=== PATIENT | male | born 1960 | race Caucasian/White ===

== ENCOUNTER → 2020-06-04 15:53 | Outpatient (BNVA) | payer SELFPAY | PROVIDERS: Visit Provider Urology | DX: Z76.89 Persons encountering health services in other specified circumstances (principal) ==

== ENCOUNTER → 2020-06-07 14:28 | Outpatient (BNVA) | payer OTHER, SELFPAY | PROVIDERS: PCP Internal Medicine; Referring Provider Internal Medicine; Visit Provider Nurse Practitioner Family | DX: Z76.89 Persons encountering health services in other specified circumstances (principal) ==

== ENCOUNTER 2020-06-14 10:13 | Outpatient (REF) | payer OTHER, SELFPAY ==
[2020-06-14 11:51] LABS: Hematocrit 43.4 % (42-52); Mean Corpuscular HGB Conc 32.3 g/dl (31.0-36.0); Mean Corpuscular Hemoglobin 29.7 pg (27.0-33.0); Mean Corpuscular Volume 92.1 fL (80-98); Mean Platelet Volume 11.3 fL (9.4-12.4); Platelet Count 224 X10*3/uL (160-400); Red Blood Count 4.71 X10*6/uL (4.60-5.80); Red Cell Distribution Width 12.9 % (11.0-16.0); White Blood Count 7.9 X10*3/uL (4.8-10.8)
[2020-06-14 12:28] LABS: Alanine Aminotransferase 18 U/L (0-40); Albumin Level 4.5 g/dL (3.5-5.0); Alkaline Phosphatase 116 U/L (39-117); Anion Gap 14 (12-20); Aspartate Amino Transferase 18 U/L (5-37); Bilirubin Total 0.6 mg/dL (0.0-1.0); Blood Urea Nitrogen 20 mg/dL (9-16); Calcium 9.5 mg/dL (8.4-10.2); Carbon Dioxide 29 mmol/L (22-29); Chloride 105 mmol/L (96-108); Estimated Glomerular Filt Rate > 60; Glucose Random 107 mg/dL (60-115); Sodium 143 mmol/L (135-145); Total Protein 7.5 g/dL (6.5-8.0)
[2020-06-14 12:45] LABS: PSA,Total (Free>4and<10) 7.02 ng/mL (0.00-4.00)
[2020-06-17 13:03] LABS: Free Prostate Spec Ag 0.9 ng/mL; Percent Free Prostate Spec Ag 13 % (calc) (>25); Prostate Specific Ag Total 6.8 ng/mL (< OR = 4.0)
== END 2020-06-14 10:14 | disposition home or self-care (01) ==
LOC: HO.LAB 10:13
PROVIDERS: Absent Provider Urology; PCP Internal Medicine; Visit Provider Nurse Practitioner Family
DX: N40.1 Benign prostatic hyperplasia with lower urinary tract symptoms (principal); R97.20 Elevated prostate specific antigen [PSA]; N13.8 Other obstructive and reflux uropathy; Z12.11 Encounter for screening for malignant neoplasm of colon; Z12.5 Encounter for screening for malignant neoplasm of prostate
CPT/HCPCS: 36415; 80053; 84153; 84154; 85027

== ENCOUNTER 2020-08-30 06:21 | Day surgery (SDC) | payer OTHER, SELFPAY ==
[2020-08-23 15:28] VITALS: BMI 26.6
--- NOTE | 2020-08-29 12:04 | HO.ANESPROP2 ---
Documented by User: Sarah Castillo 08/29/20 12:04 HPI - Anesthesia Eval Consult details Narrative: 59yo M for Colonoscopy PMFSH Active Problems Active Problems: All Active Problems (Updated 06/07/20 @ 15:16 by Iliana Workman [facility]) Elevated PSA (Acute) Past Medical History Medical History HTN (hypertension) Family History Family History Father Diabetes Kidney stones Mother High blood pressure Brother Throat cancer Surgical History Surgical History No significant past surgical history Social History Social History Are you a primary foster care social worker to a significant other at home: No Do you presently have visiting nurse or other home services: No Alcohol intake: current Alcohol intake frequency: holidays/special occasions only Smoking Status: Current every day smoker Tobacco Type: Cigarette Packs Per Day: 0.5 Cigarettes Per Day: 10.0 Years Smoked: 40+ Smoked in Last 30 Days: Yes Patient Interested in Nicotine Replacement: No Use of substances other than those prescribed or required for medical reasons: No Have you been hit, kicked, punched, or otherwise hurt by someone within the past year? If so, by whom?: No Advance Directives: No Advance Directives Information Provided: No Advance Directives on File: No Recently lost weight without trying: No Meds Allergies Allergy/AdvReac Type Severity Reaction Status Date / Time No Known Allergies Allergy Verified 08/30/20 06:32 Home Medications Medication Instructions Recorded Confirmed Last Taken Type aspirin 81 mg tablet,delayed 81 mg PO DAILY 06/07/20 08/23/20 08/30/20 History release lisinopril 20 mg tablet 20 mg PO DAILY 06/07/20 08/23/20 08/30/20 History Exam Exam Date and Time: August 29, 2020 1204 Height,Weight and Vital Signs: Height 5 ft 7 in Weight 77.111 kg Assessment and Plan Assessment Anesthesia Assessment: Chart Reviewed Documented by User: Becka Joe 08/30/20 07:28 [facility] Past Medical History Medical History HTN (hypertension) Family History Family History Father Diabetes Kidney stones Mother High blood pressure Brother Throat cancer Surgical History Surgical History No significant past surgical history Social History Social History Are you a primary foster care social worker to a significant other at home: No Do you presently have visiting nurse or other home services: No Alcohol intake: current Alcohol intake frequency: holidays/special occasions only Smoking Status: Current every day smoker Tobacco Type: Cigarette Packs Per Day: 0.5 Cigarettes Per Day: 10.0 Years Smoked: 40+ Smoked in Last 30 Days: Yes Patient Interested in Nicotine Replacement: No Use of substances other than those prescribed or required for medical reasons: No Have you been hit, kicked, punched, or otherwise hurt by someone within the past year? If so, by whom?: No Advance Directives: No Advance Directives Information Provided: No Advance Directives on File: No Recently lost weight without trying: No Meds Allergies Allergy/AdvReac Type Severity Reaction Status Date / Time No Known Allergies Allergy Verified 08/30/20 06:32 Home Medications Medication Instructions Recorded Confirmed Last Taken Type aspirin 81 mg tablet,delayed 81 mg PO DAILY 06/07/20 08/23/20 08/30/20 History release lisinopril 20 mg tablet 20 mg PO DAILY 06/07/20 08/23/20 08/30/20 History Exam Airway Mallampati Class: II TM Dist: >3cm Neck ROM: Full Loose/Missing/Broken Teeth: No Heart: RRR Lungs: CTA Assessment and Plan Assessment Anesthesia Assessment: Anesthesia Plan Discussed and Chart Reviewed Final Anesthetic Review NPO: Yes ASA Class: II Final Preanesthetic Review: Meds/Allgs Chart Reviewed, Consent Obtained/Reviewed and Anes Risks/Benef Reviewed Patient Risk: Low Procedure Risk: Low Anesthetic Plan Anesthetic Plan: MAC: and Spinal Disposition: Standard PACU
[2020-08-30 06:43] VITALS: BP 137/74; PULSE 72; RESP 18; TEMP 36.2; O2SAT 98
[2020-08-30] MEDS: Lactated Ringers 1,000 ML 100 ML IVCONT (06:50)
--- NOTE | 2020-08-30 07:17 | W.PM.OPN ---
Operative Note Operative Note Date of Service: 09/02/20 Narrative: Pre-op diagnosis: Colon cancer screening Post-op diagnosis: other (Colon polyps, diverticulosis) Procedure: COLONOSCOPY TILL CECUM WITH BIOPSY AND SNARE POLYPECTOMY Consent: Indications for the procedure and potential complications of bleeding, perforation, reaction to medications and missed diagnosis were discussed with the patient with the help of a utility worker woolen mill and informed consent was obtained. Instrument: Olympus PCF H 190 L variable stiffness pediatric colonoscope Monitoring: Vital signs and clinical assessment, intermittent blood pressure monitoring, continuous EKG monitoring, Pulse oximetry and Carbon Dioxide monitoring were done throughout the procedure. Colon withdrawl time was 22 minutes. Procedure: The patient was placed in the left lateral decubitis position and pre-procedure medications were administered. After a digital rectal examination of the ano-rectum, the video colonoscope was inserted into the rectum and advanced through the colon to the cecum. The colonoscope was slowly withdrawn in a retrograde panoramic fashion and the colon mucosa was carefully examined including a retroflexed view of the rectum. Findings and interventions are described below. Procedure Difficulty: Without difficulty Findings: Terminal Ileum: Not evaluated Cecum: Normal Ascending Colon: Normal Transverse Colon: Two 4-5 mm sessile diminutive appearing polyps removed with the cold biopsy. A 10 mm sessile polyp removed with a cold snare. Descending Colon: Normal Sigmoid Colon: Two 5-6 mm diminutive appearing polyps removed with the cold biopsy. Moderate diverticulosis Rectum: Normal Ano-rectum: Normal Colon preparation: Good after copious irrigation Impression and Post Procedure Diagnosis: Colonoscopy Findings: Five small to medium sized polyps removed Moderate diverticulosis seen in the []colon Plan: Await pathology results Patient has an appointment on 09/20/20 in the GI Clinic with Iliana Workman FNP-BC. Repeat Colonoscopy interval based on path results - in 3-5 years if polyps are adenomatous and 10 years if polyps are hyperplastic. Above findings were reviewed with the patient and colon polyps and diverticulosis handouts were given in the discharge area Surgeon: Jody Arriola MD Anesthesia: MAC (Jaja Perez CRNA) Recreation Adviser: Ricardo Zhu Estimated blood loss (mL): 0 Pathology: other (A. Transverse colon polyps x3. B. sigmoid polyps x2) Condition: stable Disposition: PACU
--- NOTE | 2020-08-30 07:18 | MHC.SHP ---
Pre-Procedural Eval Section A The patient is an INPATIENT: No The History & Physical has been completed within 30 days and I have reviewed it.: No Section B Chief Complaint: screening Details of Present Illness: History of colonoscopy in the past with normal results per patient. Patient denies any gastrointestinal symptoms in the past or at present. Denies any personal or family history of gastrointestinal disease, colon polyps, or cancer. Denies history of difficulty with sedation or anesthesia in the past. Negative for history of sleep apnea. Denies any history of cardiac, renal, pulmonary, or hepatic disease. No history of infective diseases like hepatitis A, B, HIV or tuberculosis. Patient is on low-dose aspirin daily. Relevant Family History (Specify if Yes): No Relevant Social History: Tobacco Use Present Medications: see Short Stay Collaborative assessment Medical History: Significant History (Hypertension) History of Previous Operations: Relevant previous surgery/procedure and date(s) (History of colonoscopy) Allergies: Allergies Allergy/AdvReac Type Severity Reaction Status Date / Time No Known Allergies Allergy Verified 08/30/20 06:32 Review of Systems Sugical H&P ROS: Negative: Constitution, Cardiovascular, Respiratory and Gastrointestinal Exam Surgical H&P Exam: Normal: Heart, Normal: Lungs, Normal: Extremities and Normal: Abdomen Plan Diagnosis/Plan: Unchanged I have reviewed the history and physical and performed a pertinent physical examination on my patient. No changes have occurred unless specified.
[2020-08-30 08:15] VITALS: BP 95/57; PULSE 66; RESP 16; TEMP 36.1; O2SAT 100
[2020-08-30 08:30] VITALS: BP 131/78; PULSE 72; RESP 18; TEMP 36.3; O2SAT 97
== END 2020-08-30 09:06 | disposition home or self-care (01) ==
PROVIDERS: PCP Internal Medicine; Visit Provider Internal Medicine Gastroenterology
PROC: 0DJD8ZZ Inspection of Lower Intestinal Tract, Via Natural or Artificial Opening Endoscopic (ICD-10-PCS; CPT 45378; principal; 2020-08-30 07:30)
DX: Z12.11 Encounter for screening for malignant neoplasm of colon (principal); D12.5 Benign neoplasm of sigmoid colon; K63.5 Polyp of colon; K57.30 Diverticulosis of large intestine without perforation or abscess without bleeding; I10 Essential (primary) hypertension; Z79.899 Other long term (current) drug therapy; Z79.82 Long term (current) use of aspirin; F17.210 Nicotine dependence, cigarettes, uncomplicated
CPT/HCPCS: 45385; 45380; 88305

== ENCOUNTER 2021-02-07 14:40 | Outpatient (REF) | payer OTHER, SELFPAY ==
--- NOTE | ~2021-02-07 | CT_ITS ---
EXAMINATION: CT CHEST SCREENING CLINICAL INFORMATION: Nicotine dependence. COMPARISON: Chest x-ray 01/23/2014 TECHNIQUE: Multidetector volumetric CT imaging of the chest is performed without contrast using low dose technique. Additional 2-D coronal and sagittal reformatted images and axial 3-D maximum intensity projection (MIP) images are generated on the CT workstation. This CT examination was performed using dose optimization techniques as appropriate, variously including the following: *Automated exposure control *Adjustment of mA and/or kV according to patient size (this includes techniques or standardized protocols for targeted exams where dose is matched to indication/reason for exam; i.e. extremities or head) *Use of iterative reconstruction technique DLP: 50 mGy-cm FINDINGS: LUNGS: The lungs are well expanded and clear of acute pneumonic process. No pulmonary nodules, mass or consolidation seen. There is no ground-glass density or atelectasis. MEDIASTINUM: The thyroid lobes are asymmetrical but normal. Th central trachea and the bronchi are widely patent. The heart size and the great vessels are normal caliber. No pericardial effusion seen. No abnormal sized mediastinal or hilar lymph nodes. The central trachea and the bronchi are widely patent. PLEURA: There is no pleural effusion. No pleural mass or thickening. AXILLA: No lymphadenopathy. UPPER ABDOMEN: The visualized liver, spleen, pancreas, and bilateral adrenal glands are unremarkable. No radiopaque gallstones are visualized. There are punctate 2 mm radiopaque calculi upper pole right kidney. OSSEOUS STRUCTURES: There is moderate right ventral spondylosis mid and lower dorsal spine. CT/CT lung screening IMPRESSION: No pulmonary nodule, mass or consolidation seen. ASSESSMENT: Lung-RADS category 1: Negative RECOMMENDATION: Low-dose annual CT chest.
== END 2021-02-07 14:41 | disposition home or self-care (01) ==
LOC: HO.CT 14:40
PROVIDERS: Visit Provider Physician Assistant Medical
DX: Z12.2 Encounter for screening for malignant neoplasm of respiratory organs (principal); F17.210 Nicotine dependence, cigarettes, uncomplicated
CPT/HCPCS: 71271

== ENCOUNTER 2021-06-06 09:40 | Outpatient (REF) | payer OTHER, SELFPAY ==
[2021-06-06 10:39] LABS: Prostate Specific Antigen 6.83 ng/mL (<0.05-4.0)
== END 2021-06-06 09:41 | disposition home or self-care (01) ==
LOC: HO.LAB 09:40
PROVIDERS: Visit Provider Urology
DX: R97.20 Elevated prostate specific antigen [PSA] (principal); Z12.5 Encounter for screening for malignant neoplasm of prostate
CPT/HCPCS: 36415; 84153

== ENCOUNTER → 2021-06-12 08:03 | Outpatient (BNVA) | payer OTHER, SELFPAY | PROVIDERS: Visit Provider Urology | DX: R97.20 Elevated prostate specific antigen [PSA] (principal); F17.210 Nicotine dependence, cigarettes, uncomplicated | CPT/HCPCS: 99212 ==

== ENCOUNTER 2021-11-14 07:42 | Outpatient (REF) | payer OTHER, SELFPAY ==
[2021-11-14 09:54] LABS: PSA,Total (Free>4and<10) 7.16 ng/mL (0.00-4.00)
[2021-11-17 11:22] LABS: Free Prostate Spec Ag 0.8 ng/mL; Percent Free Prostate Spec Ag 11 % (calc) (>25); Prostate Specific Ag Total 7.5 ng/mL (< OR = 4.0)
== END 2021-11-14 07:43 | disposition home or self-care (01) ==
LOC: HO.LAB 07:42
PROVIDERS: Visit Provider Urology
DX: Z12.5 Encounter for screening for malignant neoplasm of prostate (principal); N13.8 Other obstructive and reflux uropathy; N40.1 Benign prostatic hyperplasia with lower urinary tract symptoms; R97.20 Elevated prostate specific antigen [PSA]
CPT/HCPCS: 36415; 84153; 84154

== ENCOUNTER 2021-12-23 07:19 | Outpatient (REF) | payer OTHER, SELFPAY ==
[2021-12-23 07:54] VITALS: BMI 25.0
[2021-12-23 07:55] VITALS: BP 134/65; PULSE 74; RESP 16; TEMP 36.7; O2SAT 100
--- NOTE | 2021-12-23 08:35 | W.PM.OPN ---
Operative Note Operative Note Date of Service: 12/23/21 Narrative: Preoperative diagnosis: Elevated PSA Postoperative diagnosis: Elevated PSA Procedure: 1. transrectal ultrasound measurement of prostate 2. transrectal ultrasound-guided pudendal nerve block 3. transrectal ultrasound-guided prostate biopsy 12 core Surgeon: Dr. Pepe Olguin Anesthetic: Local Indications for procedure: Elevated PSA 7.2 Procedure: After informed consent was verified, the patient was brought into the procedure area and lay left-hand side down on the table. Patient identity confirmed. Perioperative antibiotics confirmed. Iodine 10cc with Gel was placed per rectum Ultrasound probe was placed per rectum The prostate was measured in 3 dimensions Total volume equals 30 gm There were no cystic structures and no calcifications noted and the prostate was homogeneous in nature A ultrasound-guided pudendal nerve block was performed using 10 cc of 1% lidocaine. 8 cc was placed at the base and 2 cc of the apex. A 12 core biopsy was performed with 6 cores each side. Two cores were taken at the apex, mid and base. Cores were spaced between lateral and medial. He tolerated the procedure well. Was able to ambulate to bathroom after 5 minutes. Printed instructions regarding antibiotic use and common side effects such as low-grade temperature and bleeding were given Pathology: 12 core prostate biopsy.
[2021-12-23 08:38] VITALS: BP 137/75; PULSE 70; RESP 16; O2SAT 97
== END 2021-12-23 07:20 | disposition home or self-care (01) ==
LOC: HO.MS 07:19
PROVIDERS: PCP Internal Medicine; Visit Provider Urology
PROC: (CPT 55700; principal; 2021-12-23 08:00)
DX: R97.20 Elevated prostate specific antigen [PSA] (principal)
CPT/HCPCS: 55700; 76942; 88305

== ENCOUNTER 2023-05-18 15:36 | Emergency (ER) | payer OTHER, SELFPAY ==
[2023-05-18 15:38] VITALS: BP 176/86; PULSE 77; RESP 18; TEMP 37.3; O2SAT 98; BMI 25.7
--- NOTE | 2023-05-18 15:40 | ED_ITS ---
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 He states they told him his BP was 170s / 100s and he had to go to the ED to get his heart checked out. I asked if he was having chest pain and he states no. I am not sure why he was referred to the ED. He is compliant with his lisinopril 20mg MD complaint: HTN Onset (ago): unknown Radiation: non-radiation Severity: mild Relieving factors: none Exacerbating factors: none Associated symptoms: other (felt malaise yesterday and today not himself like pressure was high) Treatments prior to arrival: none Related Data Home Medications Medication Instructions Recorded Confirmed aspirin 81 mg tablet,delayed 81 mg PO DAILY 06/07/20 08/23/20 release (Adult Low Dose Aspirin) lisinopril 20 mg tablet 20 mg PO DAILY 06/07/20 08/23/20 Previous Rx's Medication Instructions Recorded ciprofloxacin HCl 500 mg tablet 500 mg PO BID 3 days #6 tabs 11/18/21 finasteride 5 mg tablet 5 mg PO DAILY 90 days #90 tabs 11/18/21 lisinopril 30 mg tablet 30 mg PO DAILY #30 tabs 05/18/23 Allergies Allergy/AdvReac Type Severity Reaction Status Date / Time No Known Allergies Allergy Verified 12/29/21 15:17 Review of Systems 2 Review of Systems: Constitutional : No Fever, No Chills, No Fatigue, pos malaise ENT/Mouth : No sore throat, No Rhinorrhea Eyes: No Eye Pain, No Swelling, No Redness Cardiovascular : No Chest Pain, No SOB, No Dyspnea on Exertion Respiratory : No Cough, No Sputum Gastrointestinal : No Nausea, No Vomiting, No Diarrhea, No abdominal Pain Genitourinary : No Dysuria, No Urinary Frequency, No Hematuria, Musculoskeletal : No joint pain, No Myalgias, No Joint Swelling Skin : No Skin Lesions, No rash Neuro : No Weakness, No Numbness, No Dizziness, no Headache All other systems reviewed and are negative [facility] Past Medical History Source: old records reviewed Medical History Tubular adenoma of colon (~2020) Personal history of nicotine dependence HTN (hypertension) Surgical History History of colonoscopy (~2020) Family History Family History Father Diabetes Kidney stones Mother High blood pressure Brother Throat cancer Social History Social History Are you a primary healthcare social worker to a significant other at home: No Do you presently have visiting nurse or other home services: No Alcohol intake: current Alcohol intake frequency: holidays/special occasions only Cigarette Packs Per Day: 0.5 Cigarettes Per Day: 10.0 Years Smoked: 40+ Advance Directives: No Advance Directives Information Provided: No Physical Exam ED Vital Signs: Vital Signs - 24 hr 05/18/23 15:38 Temperature 99.1 F Pulse Rate 77 Respiratory Rate 18 Blood Pressure 176/86 H Pulse Oximetry 98 Oxygen Delivery Method Room Air BMI result Body Mass Index 25.7 Appearance: Alert. Oriented X3. No acute distress. Eyes: Pupils equal, round and reactive to light. ENT: Pharynx normal. Neck: Normal inspection. Neck supple. CVS: Normal heart rate and rhythm. Pulses normal. Respiratory: No respiratory distress. Breath sounds normal. Abdomen: Soft and nontender. Skin: Skin warm and dry. Normal skin color. Normal skin turgor. Extremities: No lower extremity edema. No calf ttp Neuro: Oriented X 3. No motor deficit. No sensory deficit. Course Course Course Narrative: RME- 62 year old male presents for evaluation of chest pain, weakess, and abnormal EKG from urgent care. Plan for labs, EKG Medical Decision Making Medical Decision Making MDM Narrative: 62 yo male with HTN here with feeling like his BP was high but no headaches, chest pain or end organ dysfunction signs - had labs, EKG negative workup. BP does remain high will increase lisinopril to 30mg daily with parameters and follow up with PCP. 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 Differential Diagnosis Differential Diagnoses: The differential diagnosis associated with the presentation includes uncontrolled HTN Admission/Observation Consideration of admission/observation: Escalation of care including admission/observation considered negative workup stable for DC Lab Data MDM Lab Attestation statement: I reviewed the patient's lab results. 05/18/23 17:57 05/18/23 17:57 Labs: Lab Results 05/18/23 05/18/23 Range/Units 17:57 18:00 WBC 10.2 (4.8-10.8) X10*3/uL RBC 4.96 (4.60-5.80) X10*6/uL Hgb 15.5 (14.0-18.0) g/dl Hct 45.3 (42.0-52.0) % MCV 91.3 (80.0-98.0) fL MCH 31.3 (27.0-33.0) pg MCHC 34.2 (31.0-36.0) g/dl RDW 13.1 (11.0-16.0) % Plt Count 216 (160-400) X10*3/uL MPV 11.1 (9.4-12.4) fL Immature Gran % (Auto) 0.3 (0.0-0.4) % Neut % (Auto) 73.1 H (45-73) % Lymph % (Auto) 19.8 L (20-40) % [place] % (Auto) 5.5 (2-11) % Eos % (Auto) 0.9 (0-4) % Baso % (Auto) 0.4 (0-2) % Lymph # (Auto) 2.0 (1.2-4.9) X10*3/uL [place] # (Auto) 0.6 (0.1-1.2) X10*3/uL Eos # (Auto) 0.1 (0.0-0.4) X10*3/uL Baso # (Auto) 0.0 (0.0-0.2) X10*3/uL Abs Immat Gran (auto) 0.03 (0.00-0.03) X10*3/uL Absolute Neuts (auto) 7.4 (2.0-8.3) x10*3/uL Absolute Nucleated RBC 0.000 (0.0-0.012) X10*3/uL Nucleated RBC % (auto) 0.0 (0.0-0.2) /100WBC PT 11.1 (11.1-13.3) SEC INR 0.9 (0.9-1.1) APTT 27.2 (26.0-36.4) SEC Sodium 140 (135-145) mmol/L Potassium 4.1 (3.3-5.1) mmol/L Chloride 105 (96-108) mmol/L Carbon Dioxide 27 (22-29) mmol/L Anion Gap 12 (12-20) BUN 16 (9-16) mg/dL Creatinine 0.81 (0.5-1.4) mg/dL Estim Creat Clear Calc 87.2 Estimated GFR > 60 Random Glucose 99 (60-115) mg/dL Calcium 9.6 (8.4-10.2) mg/dL Total Bilirubin 0.2 (0.0-1.0) mg/dL AST 16 (5-37) U/L ALT 13 (0-40) U/L Alkaline Phosphatase 119 H (39-117) U/L Troponin I High Sens < 2.7 (<3.5-35.0) ng/L Total Protein 7.7 (6.5-8.0) g/dL Albumin 4.3 (3.5-5.0) g/dL Lipase 21 (8-78) U/L Urine Color Yellow Urine Appearance Clear Urine pH 5.5 (5.0-9.0) Ur Specific [place] 1.015 (1.005-1.025) Urine Protein Negative (Neg-Trace) mg/dL Urine Glucose (UA) Negative (Negative) mg/dL Urine Ketones Negative (Negative) mg/dL Urine Blood Negative (Negative) Urine Nitrite Negative (Negative) Ur Leukocyte Esterase Trace H (Negative) Urine RBC 0-2 (0-2) /HPF Urine WBC 0-5 (0-5) /HPF Ur Squamous Epith Cells 0-2 (0-2) /HPF Urine Bacteria None Seen (None Seen) Hyaline Casts 0-2 (0-2) /LPF Influenza Type A (PCR) NEGATIVE (Negative) Influenza Type B (PCR) NEGATIVE (Negative) RSV RNA Qual (PCR) NEGATIVE (Negative) SARS-CoV-2 RNA (RT-PCR) NEGATIVE (Negative) Independent Interpretation I performed an independent interpretation of an: EKG Interpretation: Rate: 72 Rhythm: NSR [place]: normal , LVH Normal P waves. Normal RESHMA. Normal QRS complex. ST T wave : normal no SADE qTC: normal prior studies: no acute ischemia The study has been interpreted contemporaneously by me. . External Record Review External record reviewed: Inpatient record Prescription Management I considered prescription management with: Other Chronic Conditions Patient?s care impacted by: Hypertension Discharge Plan Discharge Clinical Impression: Chronic hypertension Patient Disposition: Home, Self-Care Instructions: Chronic Hypertension (ED) Additional Instructions: start taking lisinopril 30mg. return for chest pain, dizziness, numbness, hold lisinopril 30mg if blood pressure is below 110. you need to follow up with your doctor in 1 week Empiece a rachel lisinopril 30 mg. regrese si tiene dolor en el pecho, mareos, entumecimiento, mantenga lisinopril 30 mg si la presi?n arterial es inferior a 110. Debe realizar un seguimiento con berry m?dico en 1 semana. Prescriptions: New lisinopril 30 mg tablet 30 mg PO DAILY Qty: 30 0RF No Action lisinopril 20 mg tablet 20 mg PO DAILY aspirin [Adult Low Dose Aspirin] 81 mg tablet,delayed release (DR/EC) 81 mg PO DAILY ciprofloxacin HCl 500 mg tablet 500 mg PO BID 3 Days Qty: 6 0RF Rx Instructions: Take antibiotics day before, day of, and day after procedure finasteride 5 mg tablet 5 mg PO DAILY 90 Days Qty: 90 1RF Stand Alone Forms: Work/School Release Print Language: Luxembourgish
--- NOTE | 2023-05-18 15:41 | ECG_ITS ---
Test Reason : CP Blood Pressure : / mmHG Vent. Rate : 072 BPM Atrial Rate : 072 BPM P-R Int : 142 ms QRS Dur : 088 ms QT Int : 400 ms P-R-T Axes : 046 030 036 degrees QTc Int : 438 ms Sinus rhythm with baseline artifact Minimal voltage criteria for LVH, may be normal variant ( Sokolow-Mckeon ) Borderline ECG When compared with ECG of 23-JAN-2014 19:07, No significant changes seen Referred By: Vince Leavitt Electronically Signed By:ROSALIO SOLOMON MD
[2023-05-18 18:09] LABS: MANUAL DIFF FLAG NO
[2023-05-18 18:14] LABS: Basophils Percent Auto 0.4 % (0-2); Eosinophils Absolute Auto 0.1 X10*3/uL (0.0-0.4); Eosinophils Percent Auto 0.9 % (0-4); Hematocrit 45.3 % (42.0-52.0); Hemoglobin 15.5 g/dl (14.0-18.0); Imm Gran Abs Auto 0.03 X10*3/uL (0.00-0.03); Imm Gran Pct Auto 0.3 % (0.0-0.4); Lymphocytes Percent Auto 19.8 % (20-40); Mean Corpuscular HGB Conc 34.2 g/dl (31.0-36.0); Mean Corpuscular Hemoglobin 31.3 pg (27.0-33.0); Mean Corpuscular Volume 91.3 fL (80.0-98.0); Mean Platelet Volume 11.1 fL (9.4-12.4); Monocytes Absolute Auto 0.6 X10*3/uL (0.1-1.2); Monocytes Percent Auto 5.5 % (2-11); Neutrophils Absolute Auto 7.4 x10*3/uL (2.0-8.3); Neutrophils Percent Auto 73.1 % (45-73); Platelet Count 216 X10*3/uL (160-400); Red Blood Count 4.96 X10*6/uL (4.60-5.80); Red Cell Distribution Width 13.1 % (11.0-16.0); White Blood Count 10.2 X10*3/uL (4.8-10.8)
[2023-05-18 18:16] LABS: Appearance Urine Clear; Color Urine Yellow; Glucose Urine UA Negative (Negative); Leukocyte Esterase Urine Trace (Negative); Nitrite Urine Negative (Negative); PH 5.5 (5.0-9.0); Specific Gravity - Urine 1.015 (1.005-1.025); UMIC TRIGGER UACC YES; Urine Blood Negative (Negative); Urine Ketones Negative (Negative); Urine Protein Negative (Neg-Trace)
[2023-05-18 18:18] LABS: Bacteria Urine None Seen (None Seen); Hyaline Casts Urine 0-2 /LPF (0-2); RBC Urine 0-2 /HPF (0-2); Squamous Epithelial Cell Urine 0-2 /HPF (0-2); WBC Urine 0-5 /HPF (0-5)
[2023-05-18 18:19] LABS: INTERNATIONAL NORM RATIO 0.9 (0.9-1.1); Prothrombin Time 11.1 SEC (11.1-13.3)
[2023-05-18 18:22] LABS: Partial Thromboplastin Time 27.2 SEC (26.0-36.4)
[2023-05-18 18:28] LABS: Alanine Aminotransferase 13 U/L (0-40); Albumin Level 4.3 g/dL (3.5-5.0); Alkaline Phosphatase 119 U/L (39-117); Anion Gap 12 (12-20); Aspartate Amino Transferase 16 U/L (5-37); Bilirubin Total 0.2 mg/dL (0.0-1.0); Blood Urea Nitrogen 16 mg/dL (9-16); Calcium 9.6 mg/dL (8.4-10.2); Carbon Dioxide 27 mmol/L (22-29); Chloride 105 mmol/L (96-108); Creatinine Clr Calc Pharmacy 87.2; Estimated Glomerular Filt Rate > 60; Glucose Random 99 mg/dL (60-115); Lipase 21 U/L (8-78); Potassium 4.1 mmol/L (3.3-5.1); Sodium 140 mmol/L (135-145); Total Protein 7.7 g/dL (6.5-8.0)
[2023-05-18 18:41] LABS: Troponin-I High Sensitivity < 2.7 ng/L (<3.5-35.0)
[2023-05-18 18:51] LABS: Influenza A PCR NEGATIVE (Negative); Influenza B PCR NEGATIVE (Negative); Resp Syncy Virus RNA Qual PCR NEGATIVE (Negative); SARS COV2 PCR INHOUSE NEGATIVE (Negative)
--- NOTE | 2023-05-18 19:15 | MHC.EDTECH ---
EKG done at this time and signed by provider
[2023-05-18 23:51] VITALS: BP 148/92; PULSE 70; RESP 18; TEMP 36.7; O2SAT 98
== END 2023-05-19 00:09 | disposition home or self-care (01) ==
PROVIDERS: Physician Assistant; Emergency Provider Emergency Medicine
DX: R07.89 Other chest pain (principal); R00.2 Palpitations; I10 Essential (primary) hypertension; Z20.822 Contact with and (suspected) exposure to COVID-19; Z20.828 Contact with and (suspected) exposure to other viral communicable diseases; Z79.899 Other long term (current) drug therapy
CPT/HCPCS: 0241U; 36415; 80053; 81001; 83690; 84484; 85025; 85610; 85730; 93005; 99284

== ENCOUNTER → 2023-05-18 15:41 | Outpatient (BNV) | payer OTHER, SELFPAY | PROVIDERS: Emergency Provider Emergency Medicine; Visit Provider Internal Medicine Cardiovascular Disease | DX: R07.9 Chest pain, unspecified (principal) | CPT/HCPCS: 93010 ==

== ENCOUNTER 2023-07-08 11:13 | Outpatient (AMB) | payer OTHER, SELFPAY ==
--- NOTE | 2023-07-08 11:26 | A.OFFVIS_ITS ---
Intake Intake Visit Reasons: 6 Month PSA(set) Intake Note: Patient presents today for a follow-up/ PVR Meds- Finasteride Allergies to Antibiotic- No Known Allergies Blood Thinner- Aspirin Post Void Residual: Patient stated he needs refills for Finasteride Child Care Development Specialist Required: Yes Allergies No Known Allergies Allergy (Verified 07/08/23 11:32) Medication List - Last Reconciled 07/08/23 by Pepe Olguin MD aspirin (Adult Low Dose Aspirin) 81 mg PO DAILY finasteride 5 mg PO DAILY 90 days finasteride 5 mg PO DAILY 90 days lisinopril 30 mg PO DAILY HPI HPI Comments History of Present Illness Details Seng is a pleasant male. He is a patient of Dr. Fontaine. He is seen for the following urologic issues - elevated PSA - lower urinary tract symptoms Japanese translation provided by qualified medical claims representative Six-month review Prior prostate biopsy shows chronic inflammation Did not take finasteride Lab work not complete Six-month follow-up lab work Start finasteride Elevated PSA He presents for - further evaluation of elevated PSA. Current management is - finasteride Laboratory investigations include - a total PSA evaluation 04/19 8.0 - 06/20 7.0, 06/21 6.8 13%, 11/19 7.2 11% Imaging investigations include - a transrectal ultrasound no - a prostate MRI no Individualized Prostate Cancer Risk Calculator - 5-10% high risk - repeat PSA A TRUS biopsy - 12/19 chronic inflamed prostate Symptoms include - nocturia x2 Overall symptoms are mild Therapeutic plan will be - surveillance 6 month PSA [facility] Medical History Tubular adenoma of colon (~2020) Personal history of nicotine dependence HTN (hypertension) Surgical History History of colonoscopy (~2020) Family History Father Diabetes Kidney stones Mother High blood pressure Brother Throat cancer Social History Are you a primary family member caretaker to a significant other at home: No Do you presently have visiting nurse or other home services: No Alcohol intake: current Alcohol intake frequency: holidays/special occasions only Cigarette Packs Per Day: 0.5 Cigarettes Per Day: 10.0 Years Smoked: 40+ Review of Systems Const Denies chills and Denies fever(s) Card Reports no additional complaints and Denies syncope Resp Denies cough GI Denies abdominal pain and Denies heartburn Reports as per HPI and Denies change in libido Neuro Denies syncope Psych Denies change in libido Endo Denies change in libido Physical Exam Const General: cooperative, healthy appearing, comfortable and no acute distress Orientation/consciousness: patient oriented x3 HEENT Face and sinus: Yes normal facial exam Mouth: moist mucous membranes Neck Neck: Yes normal visual inspection, Yes full ROM and Yes trachea midline Chest Chest palpation & inspection: normal inspection of the chest Resp Effort & Inspection: normal respiratory effort, able to speak in complete sentences and no respiratory distress GI Inspection: Yes normal to inspection Rectal Exam - Male: Yes normal sphincter tone and Yes prostate normal Male General Exam: Yes normal external exam Penis: normal penis and circumcised Meatus: meatus normal Scrotum: scrotum normal Testes: Testes normal Back/Spine/Pelvis Cervical Spine: normal cervical lordosis Thoracic/Lumbar Spine: thoracic and lumbar spine normal to inspection Skin General skin exam: no rashes or lesions noted Neuro General: patient oriented x3, gait normal, tone normal and moves all extremities Extrem General: Yes normal to inspection and Yes capillary refill normal Office Procedures Post Void Residual Post Residual Void Post Void Residual (PVR): 35 [id number] Void Residual by ultrasound Assessment & Plan Assessment & Plan (1) BPH w urinary obs/LUTS: Code(s): N40.1 - Benign prostatic hyperplasia with lower urinary tract symptoms; N13.8 - Other obstructive and reflux uropathy (2) Elevated PSA: Code(s): R97.20 - Elevated prostate specific antigen [PSA] Plan Finasteride daily Six-month follow-up PSA tele Orders: Orders AMB Post Void Residual by ultrasound Today R33.9 - Retention of urine, unspecified PSA,Total (Free>4and<10) 6 Months N13.8 - Other obstructive and reflux uropathy, N40.1 - Benign prostatic hyperplasia with lower urinary tract symptoms Medications: New finasteride 5 mg PO DAILY 90 tabs 1RF 90 days N13.8 - Other obstructive and reflux uropathy, N40.1 - Benign prostatic hyperplasia with lower urinary tract symptoms, R33.9 - Retention of urine, unspecified Patient Instructions: Imaging studies, laboratory and physical exam results were discussed and reviewed in detail. No major barriers to patient understanding were identified. An opportunity to ask questions regarding the treatment plan was provided. All questions were answered. The patient expressed understanding and agreement with the above treatment plan. The patient is aware they should contact our office by phone for worsening of their current condition or the appearance of new urologic symptoms. Compliance is encouraged with any medications and followup testing that is ordered. It is a privilege to participate in the urologic care of your patient. If you have any questions or concerns regarding treatment for the above conditions, or other urologic issues, please do not hesitate to contact me. The office t elephone contact is [phone]. This note is constructed using voice recognition software. While every effort has been made to ensure accuracy plastics plater errors may have been included. Yours sincerely, Dr Pepe Olguin MD, [facility] - Urology Providers of Expert, Compassionate Care for the Genitourinary System Coding Level of Care Code Est Pt Level 4 (89898) Diagnoses BPH w urinary obs/LUTS N40.1; N13.8 Elevated PSA R97.20 CPT Codes Post Residual Void - PVR CPT Code: 31305-Cojv Void Residual by ultrasound ([id number])
== END 2023-07-08 11:42 | disposition home or self-care (01) ==
PROVIDERS: PCP Internal Medicine; Visit Provider Urology
DX: N40.1 Benign prostatic hyperplasia with lower urinary tract symptoms (principal); N13.8 Other obstructive and reflux uropathy; R97.20 Elevated prostate specific antigen [PSA]
CPT/HCPCS: 99214

== ENCOUNTER → 2023-07-08 11:13 | Outpatient (BNVA) | payer OTHER, SELFPAY | PROVIDERS: PCP Internal Medicine; Visit Provider Urology | DX: N40.1 Benign prostatic hyperplasia with lower urinary tract symptoms (principal); N13.8 Other obstructive and reflux uropathy; R97.20 Elevated prostate specific antigen [PSA] | CPT/HCPCS: 51798; 99212 ==

== ENCOUNTER 2024-01-06 08:48 | Outpatient (REF) | payer OTHER, SELFPAY ==
[2024-01-06 10:35] LABS: PSA,Total (Free>4and<10) 4.49 ng/mL (0.00-4.00)
[2024-01-10 10:59] LABS: Free Prostate Spec Ag 0.4 ng/mL; Percent Free Prostate Spec Ag 10 % (calc) (>25); Prostate Specific Ag Total 4.2 ng/mL (< OR = 4.0)
== END 2024-01-06 08:49 | disposition home or self-care (01) ==
LOC: HO.LAB 08:48
PROVIDERS: Visit Provider Urology
DX: N40.1 Benign prostatic hyperplasia with lower urinary tract symptoms (principal); N13.8 Other obstructive and reflux uropathy
CPT/HCPCS: 36415; 84153; 84154

== ENCOUNTER 2024-01-07 13:01 | Outpatient (AMB) | payer OTHER, SELFPAY ==
--- NOTE | 2024-01-07 13:12 | A.OFFVIS_ITS ---
Intake Visit Reasons: 6m/PSA Intake Note: Patient presents today for a follow up on : Elevated PSA PSA: 4.49 Meds- Finasteride Allergies to Antibiotic- No Known Allergies Blood Thinner- Aspirin Logistics Supply Officer Required: Yes Logistics Supply Officer Name: Oliverio [id number] Allergies No Known Allergies Allergy (Verified 01/07/24 22:32) Medication List - Last Reconciled 01/07/24 by ROMAN Ross aspirin (Adult Low Dose Aspirin) 81 mg PO DAILY finasteride 5 mg PO DAILY 90 days lisinopril 30 mg PO DAILY HPI Comments Details: Seng is a pleasant 63-year-old Wolof-speaking male patient of Dr. Fontaine. He has a past medical history of hypertension, nicotine dependence, and elevated PSA. Presents to the office today for follow-up of his elevated PSA. In discussion with the patient today he reports to be doing and feeling well. He reports no bothersome urinary issues or concerns. Recent PSA results reviewed with the patient today. Discussed decrease in PSA. He has a history of a prior prostate biopsy with Dr. Olguin in 12/19 that noted chronic inflammation. He reports compliance with finasteride as prescribed. In office urinalysis results reviewed with the patient today. He denies urinary urgency, urinary frequency, incontinence, nocturia, hematuria, dysuria, foul smelling urine, changes to urinary stream, flank pain, fever, and or chills. He is happy with his current voiding parameters. PSAs are as follows: 06/20 7.0 % free PSA 13%, 11/19 7.2 % free PSA 11%, 01/21 4.5 % free PSA remains pending. Discussed at length potential causes of elevated PSA. Discussed further treatment options to include MRI of the prostate verses surveillance monitoring. Risks and benefits of these interventions were discussed. He otherwise offers no other issues or concerns at this time. [facility] Medical History Tubular adenoma of colon (~2020) Personal history of nicotine dependence HTN (hypertension) Surgical History History of colonoscopy (~2020) Family History Father Diabetes Kidney stones Mother High blood pressure Brother Throat cancer Social History Are you a primary disabilities caregiver to a significant other at home: No Do you presently have visiting nurse or other home services: No Alcohol intake: current Alcohol intake frequency: holidays/special occasions only Cigarette Packs Per Day: 0.5 Cigarettes Per Day: 10.0 Years Smoked: 40+ Review of Systems Const All systems reviewed & are unremarkable except as noted in HPI and below Physical Exam Const General: cooperative, healthy appearing, comfortable, no acute distress, well developed, alert and awake Orientation/consciousness: patient oriented x3 Limitations: no limitations HEENT Head: Yes normal to inspection, Yes normocephalic and Yes atraumatic Ears: hearing grossly normal bilaterally Eyes General: appearance normal, both eyes and all related structures Neck Neck: Yes normal visual inspection and Yes trachea midline Chest Chest palpation & inspection: normal inspection of the chest Resp Effort & Inspection: normal respiratory effort and able to speak in complete sentences Cardio Rate: regular rate GI Inspection: Yes normal to inspection General: Yes no CVA tenderness Back/Spine/Pelvis Back: no CVA tenderness Skin General skin exam: no rashes or lesions noted Neuro General: patient oriented x3 Extrem General: Yes normal to inspection Psych Appearance: grossly normal and well kempt Mental Status: mental status grossly normal Speech and movement: Normal speech and movement present and Clear speech present Affect: normal affect Attitude: cooperative Thought process: Normal thought process present Thought content: Normal thought content present Insight: Fair insight present (Psych) Judgement: Fair judgement present (Psych) Results AMB Urinalysis, Automated UA Leukoctes 0 Antonio/uL Last Edit by Juan Berman on 01/07/24 13:28 UA Nitrite Negative Last Edit by Juan Berman on 01/07/24 13:28 UA Urobilinogen 0.2 mg/dL Last Edit by Juan Berman on 01/07/24 13:28 UA Protein 0 mg/dL Last Edit by Juan Berman on 01/07/24 13:28 UA pH 6.0 Last Edit by Juan Berman on 01/07/24 13:28 UA Blood 0 Eusebio/uL Last Edit by Juan Berman on 01/07/24 13:28 UA Specific [place] 1.005 Last Edit by Juan Berman on 01/07/24 13:28 UA Ketone Negative Last Edit by Juan Berman on 01/07/24 13:28 UA Bilirubin 0 mg/dL Last Edit by Juan Beramn on 01/07/24 13:28 UA Glucose 0 mg/dL Last Edit by Juan Berman on 01/07/24 13:28 Results Reviewed Results Reviewed: Laboratory Last Values Urine pH (Auto) 6.0 01/07/24 13:27 Specific [place] (Auto) 1.005 01/07/24 13:27 Urine Protein (Auto) 0 mg/dL 01/07/24 13:27 Glucose (UA)(Auto) 0 mg/dL 01/07/24 13:27 Urine Ketones (Auto) Negative 01/07/24 13:27 Urine Blood (Auto) 0 Eusebio/uL 01/07/24 13:27 Urine Nitrite (Auto) Negative 01/07/24 13:27 Urine Bilirubin (Auto) 0 mg/dL 01/07/24 13:27 Urine Urobilinogen (Auto) 0.2 mg/dL 01/07/24 13:27 Leukocyte Esterase (Auto) 0 Antonio/uL 01/07/24 13:27 Assessment & Plan Assessment & Plan (1) BPH w urinary obs/LUTS: Code(s): N40.1 - Benign prostatic hyperplasia with lower urinary tract symptoms; N13.8 - Other obstructive and reflux uropathy Category: Medical (2) Elevated PSA: Code(s): R97.20 - Elevated prostate specific antigen [PSA] Category: Medical Plan In office urinalysis results reviewed with the patient today; as noted above. Recent PSA results reviewed with the patient today; as noted above. Discussed at length potential causes of elevated PSA. Discussed prostate MRI versus surveillance monitoring; risks and benefits of these interventions were discussed. All questions were answered. Patient currently denies any bothersome urinary issues or concerns. Patient reports be happy with current voiding parameters. Continue finasteride as prescribed. Will obtain PSA in 6 months. Follow-up in 6 months with lab to be completed prior; or sooner with any issues, concerns, and or questions. Orders: Orders PSA,Total (Free>4and<10) 6 Months N13.8 - Other obstructive and reflux uropathy, N40.1 - Benign prostatic hyperplasia with lower urinary tract symptoms, R97.20 - Elevated prostate specific antigen [PSA] AMB Urinalysis Automated Today Z13.9 - Encounter for screening, unspecified Medications: Refilled finasteride 5 mg PO DAILY 90 days 90 tabs 2RF N13.8 - Other obstructive and reflux uropathy, N40.1 - Benign prostatic hyperplasia with lower urinary tract symptoms, R33.9 - Retention of urine, unspecified Patient Instructions: The patient had an opportunity to ask questions regarding the treatment plan. All questions were answered. Physical exam, labs, and imaging were discussed and reviewed in detail. As well as risks, benefits, and discussion of treatment choices. No major barriers to understanding were identified. The patient expressed understanding and agreement with the above treatment plan. The patient was made aware they should contact our office by phone for worsening of their current condition, the appearance of new symptoms, or with any questions or concerns. Compliance is encouraged with any medications and follow up testing that is ordered. It is a privilege to be allowed the opportunity to participate in? your urological care.? Again, if you have any questions or concerns If you have any questions or concerns please do not hesitate to contact me. The office is [phone]. This note is constructed using voice recognition software. While every effort has been made to ensure accuracy field logistics coordinator errors may have been included. Yours sincerely, ROMAN Ross Coding Level of Care Code Est Pt Level 3 (70920) Complex EM visit Add On G2211 Diagnoses BPH w urinary obs/LUTS N40.1; N13.8 Elevated PSA R97.20
== END 2024-01-07 13:50 | disposition home or self-care (01) ==
PROVIDERS: PCP Internal Medicine; Visit Provider Nurse Practitioner Family
DX: N40.1 Benign prostatic hyperplasia with lower urinary tract symptoms (principal); N13.8 Other obstructive and reflux uropathy; R97.20 Elevated prostate specific antigen [PSA]; Z13.9 Encounter for screening, unspecified
CPT/HCPCS: 99213; G2211

== ENCOUNTER → 2024-01-07 13:01 | Outpatient (BNVA) | payer OTHER, SELFPAY | PROVIDERS: PCP Internal Medicine; Visit Provider Nurse Practitioner Family | DX: N40.1 Benign prostatic hyperplasia with lower urinary tract symptoms (principal); N13.8 Other obstructive and reflux uropathy; R33.8 Other retention of urine; R97.20 Elevated prostate specific antigen [PSA] | CPT/HCPCS: 81003; 99212 ==

== ENCOUNTER 2024-08-18 07:50 | Outpatient (REF) | payer OTHER, SELFPAY ==
[2024-08-18 09:54] LABS: PSA,Total (Free>4and<10) 3.36 ng/mL (0.00-4.00)
== END 2024-08-18 07:51 | disposition home or self-care (01) ==
LOC: HO.LAB 07:50
PROVIDERS: Visit Provider Nurse Practitioner Family
DX: N40.1 Benign prostatic hyperplasia with lower urinary tract symptoms (principal); N13.8 Other obstructive and reflux uropathy; R97.20 Elevated prostate specific antigen [PSA]
CPT/HCPCS: 36415; 84153

== ENCOUNTER 2024-08-28 08:21 | Outpatient (AMB) | payer OTHER, SELFPAY ==
--- NOTE | 2024-08-28 08:36 | A.OFFVIS_ITS ---
Intake Visit Reasons: 6m/PSA(set) Intake Note: Patient presents today for a follow up on : Elevated PSA PSA: 3.36 Meds- Finasteride Allergies to Antibiotic- No Known Allergies Blood Thinner- Aspirin National Accounts Recruiter Required: Yes National Accounts Recruiter Name: [id number] Allergies No Known Allergies Allergy (Verified 01/07/24 22:32) Medication List - Last [facility] (Adult Low Dose Aspirin) 81 mg PO DAILY finasteride 5 mg PO DAILY 90 days lisinopril 30 mg PO DAILY HPI Comments Details: Seng is a pleasant 63-year-old Macedonian-speaking male patient of Dr. Fontaine. He has a past medical history of hypertension, nicotine dependence, and elevated PSA. He presents to the office today for follow-up of his elevated PSA. In discussion with the patient today he reports to be doing and feeling well. He denies having had any bothersome urinary issues or concerns since his last office visit here. He reports compliance with 5 mg of finasteride daily as prescribed. Recent PSA results reviewed with the patient today as noted and trended below. In office urinalysis results reviewed with the patient today. He denies urinary urgency, urinary frequency, incontinence, nocturia, hematuria, dysuria, foul smelling urine, changes to urinary stream, flank pain, fever, and or chills. He is happy with his current voiding parameters. PSAs are as follows: 06/20 7.0 % free PSA 13%, 11/19 7.2 % free PSA 11%, 01/21 4.5 free PSA 10%, 325 3.4 We discussed potential causes for elevated PSA as well as decrease in PSA over the last 6-7 months. Will continue with with finasteride daily in surveillance monitoring. He otherwise offers no other issues or concerns at this time. [facility] Medical History Tubular adenoma of colon (~2020) Personal history of nicotine dependence HTN (hypertension) Surgical History History of colonoscopy (~2020) Family History Father Diabetes Kidney stones Mother High blood pressure Brother Throat cancer Social History Are you a primary rn home care to a significant other at home: No Do you presently have visiting nurse or other home services: No Alcohol intake: current Alcohol intake frequency: holidays/special occasions only Cigarette Packs Per Day: 0.5 Cigarettes Per Day: 10.0 Years Smoked: 40+ Review of Systems Const All systems reviewed & are unremarkable except as noted in HPI and below Physical Exam Const General: cooperative, healthy appearing, comfortable, no acute distress, well developed, alert and awake Orientation/consciousness: patient oriented x3 Limitations: no limitations HEENT Head: Yes normal to inspection, Yes normocephalic and Yes atraumatic Ears: hearing grossly normal bilaterally Eyes General: appearance normal, both eyes and all related structures Neck Neck: Yes normal visual inspection and Yes trachea midline Chest Chest palpation & inspection: normal inspection of the chest Resp Effort & Inspection: normal respiratory effort and able to speak in complete sentences Cardio Rate: regular rate GI Inspection: Yes normal to inspection General: Yes no CVA tenderness Back/Spine/Pelvis Back: no CVA tenderness Skin General skin exam: no rashes or lesions noted Neuro General: patient oriented x3 Extrem General: Yes normal to inspection Psych Appearance: grossly normal and well kempt Mental Status: mental status grossly normal Speech and movement: Normal speech and movement present and Clear speech present Affect: normal affect Attitude: cooperative Thought process: Normal thought process present Thought content: Normal thought content present Insight: Fair insight present (Psych) Judgement: Fair judgement present (Psych) Results AMB Urinalysis, Automated UA Leukoctes 0 Antonio/uL Last Edit by Juan Berman on 08/28/24 09:15 UA Nitrite Last Edit by Juan Berman on 08/28/24 09:15 UA Urobilinogen 0.2 mg/dL Last Edit by Juan Berman on 08/28/24 09:15 UA Protein 0 mg/dL Last Edit by Juan Berman on 08/28/24 09:15 UA pH 6.0 Last Edit by Juan Berman on 08/28/24 09:15 UA Blood 0 Eusebio/uL Last Edit by Juan Berman on 08/28/24 09:15 UA Specific [place] 1.020 Last Edit by Juan Berman on 08/28/24 09:15 UA Ketone Last Edit by Juan Berman on 08/28/24 09:15 UA Bilirubin 0 mg/dL Last Edit by Juan Berman on 08/28/24 09:15 UA Glucose 0 mg/dL Last Edit by Juan Berman on 08/28/24 09:15 Results Reviewed Results Reviewed: Laboratory Last Values Urine pH (Auto) 6.0 08/28/24 09:13 Specific [place] (Auto) 1.020 08/28/24 09:13 Urine Protein (Auto) 0 mg/dL 08/28/24 09:13 Glucose (UA)(Auto) 0 mg/dL 08/28/24 09:13 Urine Blood (Auto) 0 Eusebio/uL 08/28/24 09:13 Urine Bilirubin (Auto) 0 mg/dL 08/28/24 09:13 Urine Urobilinogen (Auto) 0.2 mg/dL 08/28/24 09:13 Leukocyte Esterase (Auto) 0 Antonio/uL 08/28/24 09:13 Assessment & Plan Assessment & Plan (1) BPH w urinary obs/LUTS: Code(s): N40.1 - Benign prostatic hyperplasia with lower urinary tract symptoms; N13.8 - Other obstructive and reflux uropathy Category: Medical (2) Elevated PSA: Code(s): R97.20 - Elevated prostate specific antigen [PSA] Category: Medical Plan In office urinalysis results reviewed the patient today; as noted above. Recent PSA results reviewed with the patient today; as noted above. He currently denies any bothersome urinary issues or concerns. He reports be happy with current voiding parameters. Will continue with surveillance monitoring of PSA Will obtain PSA in 6 months. Follow-up in 6 months with PSA and PVR; or sooner with any issues, concerns, and or questions. Orders: Orders AMB Urinalysis Automated Today Z13.9 - Encounter for screening, unspecified Prostate Specific Antigen 6 Months N13.8 - Other obstructive and reflux uropathy, N40.1 - Benign prostatic hyperplasia with lower urinary tract symptoms, R97.20 - Elevated prostate specific antigen [PSA] Patient Instructions: The patient had an opportunity to ask questions regarding the treatment plan. All questions were answered. Physical exam, labs, and imaging were discussed and reviewed in detail. As well as risks, benefits, and discussion of treatment choices. No major barriers to understanding were identified. The patient expressed understanding and agreement with the above treatment plan. The patient was made aware they should contact our office by phone for worsening of their current condition, the appearance of new symptoms, or with any q uestions or concerns. Compliance is encouraged with any medications and follow up testing that is ordered. It is a privilege to be allowed the opportunity to participate in? your urological care.? Again, if you have any questions or concerns If you have any questions or concerns please do not hesitate to contact me. The office is [phone]. This note is constructed using voice recognition software. While every effort has been made to ensure accuracy industrial hygiene manager errors may have been included. Yours sincerely, ROMAN Ross Coding Level of Care Code Est Pt Level 3 (74515) Complex EM visit Add On G2211 Diagnoses BPH w urinary obs/LUTS N40.1; N13.8 Elevated PSA R97.20
== END 2024-08-28 09:01 | disposition home or self-care (01) ==
LOC: HO.HUSH 08:22
PROVIDERS: PCP Internal Medicine; Visit Provider Nurse Practitioner Family
DX: N40.1 Benign prostatic hyperplasia with lower urinary tract symptoms (principal); N13.8 Other obstructive and reflux uropathy; R97.20 Elevated prostate specific antigen [PSA]; Z13.9 Encounter for screening, unspecified
CPT/HCPCS: 99213; G2211

== ENCOUNTER → 2024-08-28 08:21 | Outpatient (BNVA) | payer OTHER, SELFPAY | PROVIDERS: PCP Internal Medicine; Visit Provider Nurse Practitioner Family | DX: N40.1 Benign prostatic hyperplasia with lower urinary tract symptoms (principal); N13.8 Other obstructive and reflux uropathy; R97.20 Elevated prostate specific antigen [PSA] | CPT/HCPCS: 81003; 99212 ==

== ENCOUNTER 2024-09-19 10:35 | Outpatient (REF) | payer OTHER, SELFPAY ==
[2024-09-19 11:57] LABS: Cholesterol 159 mg/dL (<200); HDL Cholesterol 72 mg/dL (>40); LDL Cholesterol Calculated 68 mg/dL (<100); Triglycerides 98 mg/dL (<150)
--- OUTSIDE RECORDS SUMMARY | 2024-09-19 12:38 | XMS_ITS | Clinical Summary ---
Author Organization [facility] Address [address] [place] [address] Care Team Providers Care Burner Technician Name Role Phone Unavailable Primary Care Provider Unavailabl e Source Comments PLEASE NOTE, if this patient is a minor, it may be UNLAWFUL to discuss sensitive information that is contained in these records (such as FAMILY PLANNING, MENTAL HEALTH or SUBSTANCE ABUSE) with the minor patient's parent or other person without the patient's specific authorization.[facility] Immunizations Immunization Administration Dates Next Due Moderna COVID-19 Vaccine, re d cap blue label, 12+ Primary Series 10/14/2020,09/16/2020 Social History Tobacco Use Types Packs/Day Years Used Date Smoking Tobacco: Never Assessed Social Connections Answer Date Recorded Social Connections and Isolation 0 09/16/2020 Financial Resource Strain Answer Date R ecorded Financial Resource Strain 0 2020 Stress Answer Date Recorded Stress 0 09/16/2020 Physical Activity Answer Date Recorded Physical Activity 0 09/16/2020 Food Insecurity Answer Date Recorded Food 0 09/16/2020 Transportation Needs Answer Date Record ed Transportation 0 09/16/2020 Housing Stability Answer Date Recorded Housing 0 09/16/2020 Safety and Environment Answer Date Tad rded Safety 0 09/16/2020 Utilities Answer Date Recorded Utilities 0 09/16/2020 Employment Answer Date Recorded Employment 0 09/16/2020 Sex and Gender Information Value Date Recorded Sex Assigned at Not on file Legal Sex Male 10:55 AM PDT Gender Identity Not on file Sexual Orientation Not on file Plan of Treatment Health Maintenance Due Date Last Done Comments Anxiety Screening 1960 Diabetes Screening 1959 Hepatitis C Screening 1959 Lipid Screening 1959 Tobacco Screening 1959 HIV Screening 09/22/1974 Hypertension Screening (#1) 09/22/1977 CT Colonography 09/22/2004 Colonoscopy 09/22/2004 Colorectal Cancer Screening 09/22/2004 FIT/gFOBT 09/22/2004 Fecal DNA 09/22/2004 Flexible Sigmoidoscopy 09/22/2004 Imm-Zoster, Recombinant (1 of 2) 09/22/2009 Imm-DTaP/Tdap/Td (2 - Td or Tdap) 08/15/2020 011, 02/24/2010 [id number] (3 - season) 2024 021, 09/16/2020 Imm-Influenza (#1) 2024 03/21/2018, 1 07/06/2012, 05/06/2012, Additional history exists Alcohol and Drug Screen 05/31/2024 Depression Annual Screen 05/31/2024 Insurance [employer] Member Subscriber Plan / Payer (Ef fective 2020-Present) Name:Seng Aguila Relation to Subscriber:Self Name:Seng Aguila Payer ID:[id number] Type:Indemnity Address: [facility] [address] [place] [address]
--- OUTSIDE RECORDS SUMMARY | 2024-09-19 12:38 | XMS_ITS | Encounter Summary ---
Author Organization [employer] Address [address] [place] [address] [address] [place] [address] Care Team Providers Care Stonecutter Name Role Phone Name, Johny CHRISTY Primary Care Provider [phone] Reason for Visit * Reason Comments Med Refill Encounter Details Date Type Department Care Team (Late st Contact Info) Description 06/21/2024 Refill [facility] [address] [place] [address] [phone] Ese Dukes MD [address] [place], [place] [id number] Social History Tobacco Use Types Packs/Day Years Used Date Smoking Tobacco: Every Day Cigarettes Smokeless Tobacco: Never Sex and Gender Information Value Date Recorded Sex Assigned at Male 03/30/2022 10:16 AM EDT Legal Sex Male 10:16 AM EDT Gender Identity Male 03/30/2022 10:16 AM EDT Sexual Orientation Choose not to disclose 2021 10:16 AM EDT documented as of this encounter Plan of Treatment Not on file documented as of this encounter Visit Diagnoses Not on filedocumented in this encounter Care Teams Stonecutter Relationship Specialty Start Date End Date Name, MD Johny [address] [place] [address] [phone] PCP - General Internal Medicine 07/07/24 documented as of this encounter
--- OUTSIDE RECORDS SUMMARY | 2024-09-19 12:38 | XMS_ITS | Clinical Summary ---
Author Organization [employer] Address [address] [facility] 7[address] [place] [address] Care Team Providers Care Associate Music Professor Name Role Phone NameJohny MD Primary Care Provider [phone] Allergies No known active allergies Medications finasteride (Proscar) 5 MG tablet Take 5 mg by mouth in the morning. 06/22/2022 Active ibuprofen 800 MG tablet Take 800 mg by mouth 3 times daily. 06/22/2022 Active aspirin (Aspirin Low Dose) 81 MG EC tablet TAKE 1 TABLET BY MOUTH EVERY DAY 90 tablet 02/23/2024 Active lisinopril 30 MG tablet TAKE 1 TABLET BY MOUTH EVERY MORNING 90 tablet 07/07/2024 Active Active Problems Problem Noted Date Diagnosed Date Raised prostate specific antigen 09/07/2024 Essential hypertension 04/14/2019 Depressive disorder 05/05/2012 Impaired fasting glucose 05/05/2012 Tobacco dependence syndrome 05/05/2012 Encounters Date Type Department Care Team Description 09/19/2024 Travel 09/12/2024 10:15 AM EDT Office Visit [facility] [address] [place] [phone] Johny Amor MD Essential hypertension (Primary Dx); Chest pain, unspecified type; BPH with elevated PSA; Tobacco dependence syndrome 09/12/2024 Travel 09/07/2024 Telephone [facility] [address] [place] [address] aRe Juarez MA chart prep 09/05/2024 Patient Outreach [facility] [address] [place], [place] [phone] Johny Amor MD Pre-visit Planning (SDOH unable to reach, Disconnected) 09/05/2024 Telephone [facility] [address] [facility] [place] [address] Name, MD Johny 07/07/2024 Telephone [facility] [address] [place] [address] Name, MD Johny Med Refill 07/07/2024 Refill [facility] [address] [place], [place] [phone] Ese Dukes MD 06/21/2024 Refill [facility] [address] [place] [address] Ese Dukes MD from Last 3 Months Immunizations Name Administration Dates Next Due Influenza injectable quadriv alent IIV4 with preservative 03/21/2018 Influenza, IIV3, injectable 06/07/2009 Influenza, Split (incl. purified surface antigen ) 05/05/2013,05/06/2012 MMR 02/24/2007 Pneumococcal Polysaccharide PPSV23 08/15/2010 TD (adult), 2 Lf tetanus tox oid, preservative free, adsorbed 02/24/2010 Tdap 04/25/2024,08/15/2010 Family History Medical History Relation Name Comments Coronary artery disease Father Diabetes Father Kidney disease Father Asthma Mother Glaucoma Mother Relation Name Status Comments Father Mother Social History Tobacco Use Types Packs/Day Years Used Date Smoking Tobacco: Every Day Cigarettes Smokeless Tobacco: Never Tobacco Cessation:Ready to Q uit: Not Asked; Counseling Given: Not Answered Alcohol Use Standard Drinks/Week Comments Defer 0 (1 standard drink = 0.6 oz pur e alcohol) socially Depression Answer Date Recorded Patient Health Questionnaire-9 Score 5 09/12/2024 Patient Health Questionnaire-9 Score 5 09/12/2024 Last PHQ-9: Questionnaire Data Not on file 0 09/12/2024 Housing Stability Answer Date Recorded What is your housing situation today? I have vito hernandez 09/12/[address] you li ve. Do you have problems with any of the following? None of the above 09/12/2024 Food Insecurity Answer Date Recorded Within the past 12 months, y ou worried that your food would run out before you got money to buy more: Never True 09/12/2024 Within the past 12 months,th e food you bought just didn't last and you didn't have enough money to get more: Never True Transportation Answer Date Recorded In the past 12 months, has l ack of transportation kept you from medical appts, meetings, work or from getting things needed for daily living? No;Yes, it has kept me from medical appointments or getting medications. 09/12/2024 Utilities Answer Date Recorded In the past 12 months, has t he electric, gas, oil or water company threatened to shut off services in your home? No 09/12/2024 Depression Answer Date Recorded Patient Health Questionnaire-2 Score 4 09/12/2024 Internet Access Answer Date Recorded Internet Access Q1 Yes 09/12/2024 Internet Access Q2 Not on file 09/12/2024 Sex and Gender Information Value Date Recorded Sex Assigned at Male 03/30/2022 10:16 AM EDT Legal Sex Male 10:16 AM EDT Gender Identity Male 03/30/2022 10:16 AM EDT Sexual Orientation Choose not to disclose 2021 10:16 AM EDT Last Filed Vital Signs Vital Sign Reading Time Taken Comments Blood Pressure 153/89 09/12/2024 10:39 AM EDT Pulse 93 09/12/2024 10:24 AM EDT Temperature 36.3 ??C (97.3 ??F) 09/12/2024 10:24 AM E DT Respiratory Rate 12 09/12/2024 10:24 AM EDT Oxygen Saturation 96% 09/12/2024 10:24 AM EDT Inhaled Oxygen Concentration - - Weight 75.5 kg (166 lb 6.4 oz) 09/12/2024 10:24 AM EDT Height 170.2 cm (5' 7 ) 09/12/2024 10:24 AM EDT Body Mass Index 26.06 09/12/2024 10:24 AM EDT Plan of Treatment Health Maintenance Due Date Last Done Comments CT Colonography 1959 FIT DNA/Cologuard 1959 FIT 1959 FOBT 1959 Sigmoidoscopy 1959 Alcohol/Substance Use Screening 1971 Zoster Vaccines (1 of 2) 09/22/2009 Pneumococcal Vaccine: 50+ Years (2 of 2 - PCV) 08/16/2011 08/15/2010 Dental Prophylaxis 11/02/2015 05/02/2015, 0 09/28/2013, 09/13/2009, Additional history exists Dental Oral Exam 02/23/2022 08/22/2021, 08/2014, 04/25/2013 Dental X-Ray: Bitewings 08/23/2022 08/23/19 22, 05/02/2015, 10/01/2014, Additional history exists COVID-19 Vaccine ( season) 2024 10/14/2020, 09/16/2020 Influenza Vaccine (#1) 2024 8, 05/05/2013, 05/06/2012, Additional history exists Dental X-Ray: Full Mouth 08/23/2024 022, 10/01/2014, 02/22/2009 Colonoscopy 08/30/2025 08/30/2020 Colorectal Cancer Screening 08/30/2025 Depression Screening 09/12/2025 09/12/2024, 09/13/19 SDOH Screening 09/12/2025 09/12/2024 Tobacco Screening 09/12/2025 09/12/2024 Lipid Panel 09/19/2029 09/19/2024, 04/19/2020 DTaP/Tdap/Td Vaccines (3 - Td or Tdap) 04/25/2034 04/25/2024, 08/15/2010, 02/24/2010 RSV Patients and Patients Aged 60 years or older (1 - 1-dose 75+ series) 09/22/2034 HIV Screening Completed 04/19/2020 Hepatitis C Screening Completed 04/19/2020 HIB Vaccines Aged Out No longer eligi ble based on patient's age to complete this topic HPV Vaccines Aged Out No longer eligi ble based on patient's age to complete this topic Hepatitis A Vaccines Aged Out No long er eligible based on patient's age to complete this topic Hepatitis B Vaccines Aged Out No long er eligible based on patient's age to complete this topic IPV Vaccines Aged Out No longer eligi ble based on patient's age to complete this topic Meningococcal Vaccine Aged Out No festus neno eligible based on patient's age to complete this topic RSV under 20 months Aged Out No longe r eligible based on patient's age to complete this topic Rotavirus Vaccines Aged Out No longer eligible based on patient's age to complete this topic Procedures Procedure Name Priority Date/Time Associated Diagnosis Comments LIPID PANEL, STANDARD Routine 09/19/2024 10:48 AM EDT Essential hypertension Chest pain, unspecified type INTRAORAL - COMPLETE SERIES OF RADIOGRAPHIC IMAGES Routine 08/22/2021 12:00 AM EDT COMPREHENSIVE ORAL EVALUATION - NEW OR ESTABLISHED PATIENT Routine 08/22/2021 12:00 AM EDT HM COLONOSCOPY Routine 08/30/2020 ZZZ HISTORICAL HEPATITIS C AB W/REFL TO HCV RNA, QN, PCR Routine 04/19/2020 8:43 AM EST HIV 1/2 ANTIGEN/ANTIBODY, FOURTH GENERATION W/RFL Routine 04/19/2020 8:43 AM EST PROPHYLAXIS - ADULT Routine 05/02/2015 1 2:00 AM EST from Last 3 Months or Most Recently Relevant to Health Maintenance Results * Lipid Panel, Standard (09/19/2024 10:48 AM EDT) Triglycerides 98 <150 mg/dL [facility] Comment:Desirable Triglyceri de: less than 150 mg/dLBorderline High Triglyceride 150-199 mg/dLHigh Triglyceride: 200-499 mg/dLVery High Triglyceride: greater than or equal to 5OO mg/dL Cholesterol 159 <200 mg/dL [facility] Comment:Desirable Cholestero l: less than 200 mg/dLBorderline High Cholesterol: 200-239 mg/dLHigh Cholesterol: greater than 239 mg/dL LDL Cholesterol Calculated 68 <100 mg/dL [facility] Comment:Desirable LDL: less than 100 mg/dLNear Optimal/Above Optimal LDL: 110- 129 mg/dLBorderline High LDL: 130-159 mg/dLHigh LDL: 160-189 mg/dLVery High LDL: greater than or equal to 190 mg/dL HDL Cholesterol 72 >40 mg/dL [facility] Comment:Desirable HDL: great er than 40 mg/dL Note: This HDL assay may give artificially low results in patients with liver disease. Blood Venous blood specimen / Unknown 09/19/2024 10:48 AM EDT 09/19/2024 10:48 AM EDT Johny Amor MD LAB BLOOD ORDERABLES Final Resul t [facility] [address] [place] [address] [phone] * Hm Colonoscopy (08/30/2020) Colonoscopy Normal Normal Narrative Yesenia Wong - 08/30/2020 Recommended 5 year follow up Historical Provider HEALTH MAINTENANCE Final Result * HEPATITIS C AB W/REFL TO HCV RNA, QN, PCR (04/19/2020 8:43 AM EST) HEPATITIS C ANTIBODY NON-REACT [facility] NON-REACT [facility] INDEX 0.02 <1.00 [facility] Comment: ?? HCV antibody was non-reactive. There is no laboratory ?? evidence of HCV infection. ?? In most cases, no further action is required. However, if recent HCV exposure is suspected, a test for HCV RNA (test code 58043) is suggested. ?? For additional information please refer to http://RADEUM.ReCoTech/faq/QSP60b7 (This link is being provided for informational/ educational purposes only.) ?? HEPATITIS C ANTIBODY NON-REACT [facility] NON-REACT [facility] INDEX 0.02 <1.00 [facility] Comment: ?? HCV antibody was non-reactive. There is no laboratory ?? evidence of HCV infection. ?? In most cases, no further action is required. However, if recent HCV exposure is suspected, a test for HCV RNA (test code 64260) is suggested. ?? For additional information please refer to http://RADEUM.ReCoTech/faq/OCJ59k7 (This link is being provided for informational/ educational purposes only.) ?? 04/19/2020 8:43 AM EST Disha Stafford MD HISTORICAL/NON ORDERABLE LABS Final Result [facility] [address] * HIV 1/2 ANTIGEN/ANTIBODY,FOURTH GENERATION W/RFL (04/19/2020 8:43 AM EST) HIV-1/2 ANTIGEN AND ANTIBODIES, 4TH GENERATION W/ REFLEX NON-REACT [facility] NON-REACT [facility] Comment: HIV-1 antigen and HIV-1/HIV-2 antibodies were not detected. There is no laboratory evidence of HIV infection. ?? PLEASE NOTE: This information has been disclosed to you from records whose confidentiality may be protected by state law. ??If your state requires such protection, then the state law prohibits you from making any further disclosure of the information without the specific written consent of the person to whom it pertains, or as otherwise permitted by law. A general authorization for the release of medical or other information is NOT sufficient for this purpose. ? For additional information please refer to http://RADEUM.ReCoTech/faq/EFK535 (This link is being provided for informational/ educational purposes only.) ? The performance of this assay has not been clinically validated in patients less than 2 years old. ?? 04/19/2020 8:43 AM EST us Disha Stafford MD LAB BLOOD ORDERABLES Final Re sult Performing Organization Address [facility] Phone Number [facility] [address] from Last 3 Months or Most Recently Relevant to Health Maintenance Insurance [facility] Care Teams Associate Music Professor Relationship Specialty Start Date End Date Name, MD Johny [address] [place] [id number] PCP - General Internal Medicine 07/07/24
--- OUTSIDE RECORDS SUMMARY | 2024-09-19 12:38 | XMS_ITS | Encounter Summary ---
Author Organization [employer] Address [address] [facility] [address]t [place] [address] Care Team Providers Care Propeller Layout Worker Name Role Phone Name, Johny CHRISTY Primary Care Provider [phone] Encounter Details Date Type Department Care Team (Latest Contact Info) Description 09/19/2024 Travel Social History Tobacco Use Types Packs/Day Years Used Date Smoking Tobacco: Every Day Cigarettes Smokeless Tobacco: Never Alcohol Use Standard Drinks/Week Comments Defer 0 [...] Diagnoses Not on filedocumented in this encounter Additional Health Concerns Assessment Noted Time PHQ-9 Depression Total Score: 5 09/13/19 25 11:08 AM EDT documented as of this encounter Care Teams Propeller Layout Worker Relationship Specialty Start Date End Date Name, MD Johny [address] [place] [address] PCP - General Internal Medicine 07/07/24 documented as of this encounter
--- OUTSIDE RECORDS SUMMARY | 2024-09-19 12:38 | XMS_ITS | Clinical Summary ---
Author Organization [facility] Address [address] [place] [address] Phone Care Team Providers Care Forensic Structural Engineer Name Role Phone Martha Welsh MD Primary Care Provider [phone] Allergies No known active allergies Medications No known medications Encounters Date Type Department Care Team Description 08/31/2024 4:29 PM EDT - 09/01/2024 10:23 AM EDT Emergency [facility] Emergency [address] [place] [address] Leatha Tadeo DO Chest pain, unspecified type (Primary Dx) Discharge Disposition: Home or Self Care from Last 3 Months Medical History Medical History Date Comments Hypertension Family History Medical History Relation Name Comments Blindness Neg Hx Cataracts Neg Hx Glaucoma Neg Hx Macular degeneration Neg Hx Strabismus Neg Hx Social History Tobacco Use Types Packs/Day Years Used Date Smoking Tobacco: Never Tobacco Cessation:Counseling Given: Not Answered Sex and Gender Information Value Date Recorded Sex Assigned at Male 06/06/2024 8:20 PM EST Legal Sex Male 8:27 AM EST Gender Identity Male 06/06/2024 8:20 PM EST Sexual Orientation Straight 08/31/2024 5: 17 PM EDT Obstetrics History Last Filed Vital Signs Vital Sign Reading Time Taken Comments Blood Pressure 157/95 08/31/2024 6:15 PM EDT Pulse 73 08/31/2024 6:15 PM EDT Temperature 36.8 ??C (98.3 ??F) 08/31/2024 6:15 PM ED T Respiratory Rate 18 08/31/2024 6:15 PM EDT Oxygen Saturation 97% 08/31/2024 6:15 PM EDT Inhaled Oxygen Concentration - - Weight 72.6 kg (160 lb) 08/31/2024 5:40 PM EDT Height 170.2 cm (5' 7 ) 08/31/2024 5:40 PM EDT Body Mass Index 25.06 08/31/2024 5:40 PM EDT Plan of Treatment Health Maintenance Due Date Last Done Comments Pneumococcal Vaccine: 50+ Years (1 of 1 - PCV) 09/22/2009 Zoster Vaccines (1 of 2) 09/22/2009 Colorectal Cancer Screening: Colonoscopy 01/25/2024 Depression Screening 01/25/2024 Hepatitis C Screening 01/25/2024 Social Influencers of Health Screening 01/25/2024 COVID-19 Vaccine (3 - 2023-2 5 season) 2024 10/14/2020, 09/16/2020 Influenza Vaccine (Season Ended) 2025 Cholesterol Screening (Lipid Panel) 04/19/2025 04/19/2020 DTaP,Tdap,and Td Vaccines (2 - Td or Tdap) 04/25/2034 04/25/2024 RSV Immunization Adult Patients (1 - 1-dose 75+ series) 09/22/2034 HIV Screening Completed 04/19/2020 HIB Vaccines Aged Out [...] on patient's age to complete this topic MMR Vaccines Aged Out No longer eligi ble based on patient's age to complete this topic Meningococcal ACWY Vaccine Aged Out N o longer eligible based on patient's age to complete this topic Meningococcal B Vaccine Aged Out No l onger eligible based on patient's age to complete this topic Pneumococcal Vaccine: Pediatrics (0 to 5 Years) and At-Risk Patients (6 to 64 Years) Aged Out No longer eligible b ased on patient's age to complete this topic RSV Immunization Patients Under 20 months Aged Out No longer eligible b ased on patient's age to complete this topic Varicella Vaccines Aged Out No longer eligible based on patient's age to complete this topic Procedures Procedure Name Priority Date/Time Associated Diagnosis Comments ECG OUTSIDE 09/01/2024 ECG ANNOTATED 09/01/2024 TROPONIN I HIGH SENSITIVITY STAT 08/31/2024 6:16 PM EDT ECG 12-LEAD STAT 08/31/2024 6:07 PM EDT XR CHEST 2 VIEWS STAT 08/31/2024 5:15 PM EDT CBC WITH AUTO DIFFERENTIAL STAT 08/31/2024 5:08 PM EDT B-TYPE NATRIURETIC PEPTIDE STAT 08/31/2024 5:08 PM EDT MAGNESIUM STAT 08/31/2024 5:08 PM EDT LIPASE STAT 08/31/2024 5:08 PM EDT COMPREHENSIVE METABOLIC PANEL STAT 08/31/2024 5:08 PM EDT CBC AND DIFFERENTIAL STAT 08/31/2024 5:08 PM EDT TROPONIN I HIGH SENSITIVITY STAT 08/31/2024 5:08 PM EDT ECG 12-LEAD STAT 08/31/2024 4:42 PM EDT from Last 3 Months Results * ECG-Outside (09/01/2024) Provider Onbase MD ECG ORDERABLES Final Result * ECG-Annotated (09/01/2024) us Provider Onbase MD ECG ORDERABLES Final Result * Troponin I high sensitivity (08/31/2024 6:16 PM EDT) Only the most recent of2 resultswithin the time period is included. High Sensitivity Troponin I 11 <=79 ng/L LAB CHEMISTRY METHOD 08/31/2024 7:23 PM EDT [facility] Blood Venous blood specimen / Unknown Venipuncture / Unknown 08/31/2024 6:16 PM EDT 08/31/2024 6:55 PM EDT Narrative [facility] - 08/31/2024 7:23 PM EDT High levels of biotin in samples may falsely decrease hsTroponin values. ??Use caution when interpreting hsTroponin results in patients taking biotin who exhibit renal impairment (eGFR <60) or in patients taking more than 20 mg/day of biotin. us Danyashley Dave Tadeo DO LAB BLOOD ORDERABLES Alice l Result Performing Organization Address [facility]/ZIP Co de Phone Number [facility]) [facility] [address] [place] [address], [place] [phone] * ECG 12 lead (08/31/2024 6:07 PM EDT) Only the most recent of2 resultswithin the time period is included. Ventricular Rate ECG 74 BPM GEMUSE Atrial Rate 74 BPM GEMUSE P-R Interval 154 ms GEMUSE QRS Duration 88 ms GEMUSE Q-T Interval 432 ms GEMUSE QTc 479 ms GEMUSE P Wave Ider 57 degrees GEMUSE R Ider 38 degrees GEMUSE T Ider 64 degrees GEMUSE ECG Interpretation Normal sinus rhythm Minimal voltage criteria for LVH, may be normal variant ( Sokolow-Mcekon ) Nonspecific T wave abnormality Abnormal ECG When compared with ECG of 31-AUG-2024 16:42, (unconfirmed) No significant change was found Confirmed by Gema ZHANG YUFENG ([id number]) on 08/31/2024 7:52:59 PM GEMUSE 08/31/2024 6:07 PM EDT 08/31/2024 7:52 PM EDT us Leatha Acosta Eloy Tadeo DO ECG ORDERABLES Final Res ult GEMUSE * XR Chest 2 Views (08/31/2024 5:15 PM EDT) Anatomical Region Laterality Modality Body Radiographic Beryl ging 09/01/2024 8:30 AM EDT Impressions 09/01/2024 8:30 AM EDT FINDINGS/IMPRESSION: Lungs are clear. ??No pleural effusion or pneumothorax. ??Cardiac silhouette is mildly enlarged. ??Degenerative changes seen throughout the bones. -------- FINAL REPORT -------- Dictated By: GRIS CHAPA Dictated Date: 09/01/2024 08:30 ET Assigned Physician: GRIS CHAPA Reviewed and Electronically Signed By: GRIS CHAPA Signed Date: 09/01/2024 08:30 ET Workstation ID: [id number] Transcribed By: Self Edit Transcribed Date: 09/01/2024 08:30 ET Narrative 09/01/2024 8:30 AM EDT XR CHEST 2 VIEWS INDICATION: ??Chest pain TECHNIQUE: XR CHEST 2 VIEWS COMPARISON: 06/06/2024 Procedure Note Gris Chapa MD - 09/01/2024 XR CHEST 2 VIEWS INDICATION: Chest pain TECHNIQUE: XR CHEST 2 VIEWS COMPARISON: 06/06/2024 IMPRESSION: FINDINGS/IMPRESSION: Lungs are clear. No pleural effusion orpneumothorax. Cardiac silhouette is mildly enlarged. Degenerativechanges seen throughout the bones. -------- FINAL REPORT -------- Dictated By: GRIS CHAPA Dictated Date: 09/01/2024 08:30 ET Assigned Physician: GRIS CHAPA Reviewed and Electronically Signed By: GRIS CHAPA Signed Date: 09/01/2024 08:30 ET Workstation ID: [id number] Transcribed By: Self Edit Transcribed Date: 09/01/2024 08:30 ET us Leatha Tadeo DO IMG XR PROCEDURES Final R esult * (ABNORMAL) CBC auto differential (08/31/2024 5:08 PM EDT) WBC 8.3 4.8 - 10.8 /[facility] LAB HEMETOLOGY METHOD 08/31/2024 6:08 PM EDT [facility] RBC 4.70 4.50 - 5.50 M/mcL LAB HEMETOLOGY METHOD 08/31/2024 6:08 PM [facility] Hemoglobin 14.2 13.5 - 17.5 g/dL LAB HEMETOLOGY METHOD 08/31/2024 6:08 PM [facility] Hematocrit 42.7 42.0 - 54.0 % LAB HEMETOLOGY METHOD 08/31/2024 6:08 PM [facility] MCV 90.5 79.0 - 98.0 FL LAB HEMETOLOGY METHOD 08/31/2024 6:08 PM [facility] MCH 30.1 27.0 - 32.0 pcg LAB HEMETOLOGY METHOD 08/31/2024 6:08 PM [facility] MCHC 33.3 32.0 - 37.0 g/dL LAB HEMETOLOGY METHOD 08/31/2024 6:08 PM [facility] RDW 13.7 11.0 - 15.0 % LAB HEMETOLOGY METHOD 08/31/2024 6:08 PM [facility] Platelets 211 130 - 400 K/mcL LAB HEMETOLOGY METHOD 08/31/2024 6:08 PM [facility] MPV 11.3(H) 7.0 - 11.0 FL LAB HEMETOLOGY METHOD 08/31/2024 6:08 PM [facility] NRBC 0.0 <1.0 % LAB HEMETOLOGY METHOD 08/31/2024 6:08 PM [facility] NRBC Absolute 0.00 <0.10 K/mcL LAB HEMETOLOGY METHOD 08/31/2024 6:08 PM [facility] Neutrophils Relative 71.4 % LAB HEMETOLOGY METHOD 08/31/2024 6:08 PM [facility] Lymphocytes Relative 18.6 % LAB HEMETOLOGY METHOD 08/31/2024 6:08 PM T [facility] Monocytes Relative 8.4 % LAB HEMETOLOGY METHOD 08/31/2024 6:08 PM [facility] Eosinophils Relative 0.8 % LAB HEMETOLOGY METHOD 08/31/2024 6:08 PM [facility] Basophils Relative 0.4 % LAB HEMETOLOGY METHOD 08/31/2024 6:08 PM [facility] Immature Granulocytes Relative 0.4 % LAB HEMETOLOGY METHOD 08/31/2024 6:08 PM [facility] Neutrophils Absolute 5.96 1.50 - 7.00 K/mcL LAB HEMETOLOGY METHOD 08/31/2024 6:08 PM [facility] Lymphocytes Absolute 1.55 1.00 - 5.00 K/mcL LAB HEMETOLOGY METHOD 08/31/2024 6:08 PM [facility] Monocytes Absolute 0.70 0.20 - 1.00 K/mcL LAB HEMETOLOGY METHOD 08/31/2024 6:08 PM [facility] Eosinophils Absolute 0.07 0.00 - 0.50 K/mcL LAB HEMETOLOGY METHOD 08/31/2024 6:08 PM [facility] Basophils Absolute 0.03 0.00 - 0.20 K/mcL LAB HEMETOLOGY METHOD 08/31/2024 6:08 PM [facility] Immature Granulocytes Absolute 0.03 0.00 - 0.03 K/mcL LAB HEMETOLOGY METHOD 08/31/2024 6:08 PM [facility] Blood Venous blood specimen / Unknown Venipuncture / Unknown 08/31/2024 5:08 PM EDT 08/31/2024 5:31 PM EDT us Leatha Tadeo DO LAB BLOOD ORDERABLES Alice l Result Performing Organization Address City/[facility]/ZIP Co de Phone Number [facility] [address] [place] [address], * B-type natriuretic peptide (08/31/2024 5:08 PM EDT) Pathologist [facility] BNP 52 <=100 pcg/mL LAB CHEMISTRY METHOD 08/31/2024 6:03 PM EDT [facility] Blood Venous blood specimen / Unknown Venipuncture / Unknown 08/31/2024 5:08 PM EDT 08/31/2024 5:31 PM EDT [facility] LAB BLOOD ORDERABLES Alice l Result Performing Organization Address [facility] Co de Phone Number [facility] [address] [place] [address], * Magnesium (08/31/2024 5:08 PM EDT) [facility] Magnesium 2.1 1.9 - 2.6 mg/dL LAB CHEMISTRY METHOD 08/31/2024 5:57 PM EDT [facility] Blood Venous blood specimen / Unknown Venipuncture / Unknown 08/31/2024 5:08 PM EDT 08/31/2024 5:31 PM EDT [facility] BLOOD ORDERABLES Alice l Result Performing Organization Address City/[facility]/ZIP Co de Phone Number [facility] [address] [place] [address], [place] [phone] * Lipase (08/31/2024 5:08 PM EDT) [facility] Lipase 33 13 - 75 unit/L LAB CHEMISTRY METHOD 08/31/2024 5:57 PM EDT [facility] Blood Venous blood specimen / Unknown Venipuncture / Unknown 08/31/2024 5:08 PM EDT 08/31/2024 5:31 PM EDT us Leatha Tadeo DO LAB BLOOD ORDERABLES Alice l Result [facility] [address] [place] [address], [place] [phone] * (ABNORMAL) Comprehensive metabolic panel (08/31/2024 5:08 PM EDT) [facility] Sodium 138 133 - 145 mmol/L LAB CHEMISTRY METHOD 08/31/2024 5:57 PM EDT [facility] Potassium 4.2 3.5 - 5.5 mmol/L LAB CHEMISTRY METHOD 08/31/2024 5:57 PM [facility] Chloride 105 96 - 110 mmol/L LAB CHEMISTRY METHOD 08/31/2024 5:57 PM EDT [facility] CO2 26 21 - 32 mmol/L LAB CHEMISTRY METHOD 08/31/2024 5:57 PM EDT [facility] Anion Gap 7 3 - 11 LAB CHEMISTRY METHOD 08/31/2024 5:57 PM [facility] Glucose 94 70 - 100 mg/dL LAB CHEMISTRY METHOD 08/31/2024 5:57 PM [facility] BUN 17 5 - 25 mg/dL LAB CHEMISTRY METHOD 08/31/2024 5:57 PM EDT [facility] Creatinine 0.98 0.70 - 1.30 mg/dL LAB CHEMISTRY METHOD 08/31/2024 5:57 PM [facility] eGFR 86 >=60 mL/min/1. 73m2 LAB CHEMISTRY METHOD 08/31/2024 5:57 PM EDT [facility] Comment:Calculation based on the??Chronic Kidney Disease Epidemiology Collaboration (CKD-EPI) equation refit??without adjustment for race. BUN/Creatinine Ratio 17.3 LAB CHEMISTRY METHOD 08/31/2024 5:57 PM EDT [facility] Calcium 9.1 8.5 - 10.5 mg/dL LAB CHEMISTRY METHOD 08/31/2024 5:57 PM EDT [facility] AST (SGOT) 16 10 - 42 unit/L LAB CHEMISTRY METHOD 08/31/2024 5:57 PM EDT [facility] ALT (SGPT) 25 10 - 60 unit/L LAB CHEMISTRY METHOD 08/31/2024 5:57 PM EDT [facility] Alkaline Phosphatase 139(H) 42 - 121 unit/L LAB CHEMISTRY METHOD 08/31/2024 5:57 PM EDT [facility] Total Protein 7.1 6.0 - 8.0 g/dL LAB CHEMISTRY METHOD 08/31/2024 5:57 PM EDT [facility] Albumin 3.7 3.2 - 5.0 g/dL LAB CHEMISTRY METHOD 08/31/2024 5:57 PM EDT [facility] Total Bilirubin 0.3 0.0 - 1.4 mg/dL LAB CHEMISTRY METHOD 08/31/2024 5:57 PM T [facility] Blood Venous blood specimen / Unknown Venipuncture / Unknown 08/31/2024 5:08 PM EDT 08/31/2024 5:31 PM EDT us Leatha Tadeo DO LAB BLOOD ORDERABLES Alice l Result [facility] [address] [place] [address], from Last 3 Months Additional Health Concerns Infection Onset Date 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
--- OUTSIDE RECORDS SUMMARY | 2024-09-19 12:38 | XMS_ITS | Encounter Summary ---
Author Organization [employer] Address [address] [facility] 7t [place] [address] Care Team Providers Care Health Science Specialist Name Role Phone Daniel Madsen Primary Care Provider Unavail able NameJohny MD Primary Care Provider [phone] Reason for Visit * Reason Onset Date Comments Med Refill 10/23/2022 Encounter Details Date Type Department Care Team (Late st Contact Info) Description 10/23/2022 Telephone [facility] MEDICINE [address] [place] [address] Daniel Madsen AGNP Med Refill Social History Tobacco Use Types Packs/Day Years Used Date Smoking Tobacco: Every Day Cigarettes Smokeless Tobacco: Never Sex and Gender Information Value Date Recorded Sex Assigned at Male 03/30/2022 10:16 AM EDT Legal Sex Male 10:16 AM EDT Gender Identity Male 03/30/2022 10:16 AM EDT Sexual Orientation Choose not to disclose 2021 10:16 AM EDT COVID-19 Exposure Response Date Recorded In the last 10 days, have yo u been in contact with someone who was confirmed or suspected to have Coronavirus/COVID-19? No / Unsure 10/02/2022 12:45 PM EDT documented as of this encounter Miscellaneous Notes * Telephone Encounter - Awilda Villatoro LPN - 10/23/2022 2:32 PM EDT Medication pended to PCP awaiting approval. * Telephone Encounter - Chelsey Lawson - 10/23/2022 2:20 PM EDT TC from [facility] requesting a med refill for medication Lisinopril 20mg. PCP NP. Madsen documented in this encounter Plan of Treatment Not on file documented as of this encounter Visit Diagnoses Not on filedocumented in this encounter Care Teams Health Science Specialist Relationship Specialty Start Date End Date Daniel Madsen AGNP PCP - General Family Medicine 03/06/22 02/09/23 Name, MD Johny [address] [place] [id number] PCP - General Internal Medicine 07/07/24 documented as of this encounter
--- OUTSIDE RECORDS SUMMARY | 2024-09-19 12:38 | XMS_ITS | Encounter Summary ---
Author Organization [employer] Address [address] [place] [address] [address] [place] [address] Care Team Providers Care Vegetable Worker Name Role Phone Name, Johny CHRISTY Primary Care Provider [phone] Reason for Visit * Reason Onset Date Comments Med Refill 07/07/2024 Encounter Details Date Type Department Care Team ([facility] st Contact Info) Description 07/07/2024 Telephone [facility] MEDICINE [address] [place], [place] [phone] Name, MD Johny [address] [place] [address] Med Refill Social History Tobacco Use Types Packs/Day Years Used Date Smoking Tobacco: Every Day Cigarettes Smokeless Tobacco: Never Sex and Gender Information Value Date Recorded Sex Assigned at Male 03/30/2022 10:16 AM EDT Legal Sex Male 10:16 AM EDT Gender Identity Male 03/30/2022 10:16 AM EDT Sexual Orientation Choose not to disclose 2021 10:16 AM EDT documented as of this encounter Miscellaneous Notes * Telephone Encounter - Chelsey Lawson - 07/07/2024 12:09 PM EST Tc from pt calling requesting a med refill for medication lisinopril (Zestril) 30 MG tablet Pt has no more meds medication was denied due to pt was not seen in 2 years scientific writer schedule transfer amanda for 09/[address] PCP DrName documented in this encounter Plan of Treatment Not on file documented as of this encounter Visit Diagnoses Not on filedocumented in this encounter Care Teams Vegetable Worker Relationship Specialty Start Date End Date Name, MD Johny [address] [place] [address] PCP - General Internal Medicine 07/07/24 documented as of this encounter
--- OUTSIDE RECORDS SUMMARY | 2024-09-19 12:38 | XMS_ITS | Encounter Summary ---
Author Organization [employer] Address [address] [place] [address] [address] [place] [address] Care Team Providers Care School Bus Driver/Mechanic Name Role Phone Name, Johny CHRISTY Primary Care Provider [phone] Encounter Details Date Type Department Care Team ([facility] st Contact Info) Description 04/12/2023 Abstract [facility] MEDICINE [address] [place], [place] [phone] Ese Dukes MD [address] [place], [place] [phone] Social History Tobacco Use Types Packs/Day Years [...] on file documented as of this encounter Procedures Procedure Name Priority Date/Time Associated Diagnosis Comments COLONOSCOPY Routine 08/30/2020 documented in this encounter Results * Colonoscopy (08/30/2020) Colonoscopy Normal Normal Narrative Yesenia Wong - 08/30/2020 Recommended 5 year follow up [facility] Provider HEALTH MAINTENANCE Final Result documented in this encounter Visit Diagnoses Not on filedocumented in this encounter Care Teams School Bus Driver/Mechanic Relationship Specialty Start Date End Date Name, MD Johny [address] [place] [address] PCP - General Internal Medicine 07/07/24 documented as of this encounter
== END 2024-09-19 10:36 | disposition home or self-care (01) ==
LOC: HO.LAB 10:35
PROVIDERS: Visit Provider Internal Medicine Geriatric Medicine
DX: R07.9 Chest pain, unspecified (principal); I10 Essential (primary) hypertension
CPT/HCPCS: 36415; 80061

== ENCOUNTER 2025-02-27 08:58 | Outpatient (REF) | payer OTHER, SELFPAY ==
--- OUTSIDE RECORDS SUMMARY | 2025-02-27 09:34 | XMS_ITS | Encounter Summary ---
Author Organization [employer] Address [address] [place] [address] [address] [place] [address] Care Team Providers Care Railroad Inspector Name Role Phone Name, Johny CHRISTY Primary Care Provider [phone] Reason for Visit * Reason Comments Med Refill Encounter Details Date Type Department Care Team ([facility] st Contact Info) Description 06/21/2024 Refill [facility] MEDICINE [address] [place] [phone] Ese Dukes MD [address] [place], [place] [phone] Social History Tobacco Use Types Packs/Day Years [...] on filedocumented in this encounter Care Teams Railroad Inspector Relationship Specialty Start Date End Date Name, MD Johny [address] [place] [phone] PCP - General Internal Medicine 07/07/24 documented as of this encounter
--- OUTSIDE RECORDS SUMMARY | 2025-02-27 09:34 | XMS_ITS | Clinical Summary ---
Author Organization [facility] Address [address] [place] [address] Phone Care Team Providers Care Consumer Analyst Name Role Phone Martha Welsh MD Primary Care Provider [phone] Allergies No known active allergies Medications No known medications Encounters Date Type Department Care Team Description 12/24/2024 5:30 PM EDT - 12/24/2024 9:12 PM EDT Emergency [facility] Emergency [address] [place] [address] Reilly Cota MD Dizziness (Primary Dx) Discharge Disposition: Home or Self [...] Sign Reading Time Taken Comments Blood Pressure 135/88 12/24/2024 8:12 PM EDT Pulse 71 12/24/2024 8:10 PM EDT Temperature 36.7 C (98.1 F) 12/24/2024 8:12 PM EDT Respiratory Rate 16 12/24/2024 8:12 PM EDT Oxygen Saturation 99% 12/24/2024 8:12 PM EDT Inhaled Oxygen Concentration - - Weight 72.6 kg (160 lb) 12/24/2024 5:03 PM EDT Height 170.2 cm (5' 7 ) 12/24/2024 5:03 PM EDT Body Mass Index 25.06 12/24/2024 5:03 PM EDT Plan of Treatment Health Maintenance Due Date Last Done Comments Colorectal Cancer Screening: Colonoscopy 1960 Zoster Vaccines (1 of 2) 09/22/2009 Pneumococcal Vaccine: 50+ Years (2 of 2 - PCV) 08/16/2011 08/15/2010 Hepatitis C Screening 01/25/2024 Social Influencers of Health Screening 01/25/2024 Depression Screening 05/31/2024 Falls Risk Assessment 09/22/2024 COVID-19 Vaccine (3 - season) 2025 10/14/2020, 09/16/2020 Influenza Vaccine (#1) 2025 8, 05/05/2013, 05/06/2012, Additional history exists Hypertension/CHF/CAD Annual BMP Blood Test 12/24/2025 12/24/2024, 08/31/2024 Cholesterol Screening (Lipid Panel) 09/19/2029 09/19/2024, 04/19/2020 DTaP,Tdap,and Td Vaccines (4 - Td or Tdap) 04/25/2034 04/25/2024, 08/15/2010, 02/24/2010 RSV Immunization Adult Patients (1 - 1-dose 75+ series) 09/22/2034 MMR Vaccines Aged Out 02/24/2007 No longer eligi ble based on patient's age to complete this topic HIB Vaccines Aged Out No longer eligi [...] 20 months Aged Out No longer eligible based on patient's age to complete this topic Varicella Vaccines Aged Out No longer eligible based on patient's age to complete this topic Procedures Procedure Name Priority Date/Time Associated Diagnosis Comments ECG ANNOTATED 12/25/2024 ECG ANNOTATED 12/25/2024 XR CHEST 2 VIEWS STAT 12/24/2024 6:41 PM EDT CBC WITH AUTO DIFFERENTIAL STAT 12/24/2024 6:30 PM EDT TROPONIN I HIGH SENSITIVITY STAT 12/24/2024 6:30 PM EDT CBC AND DIFFERENTIAL STAT 12/24/2024 6:30 PM EDT BASIC METABOLIC PANEL STAT 12/24/2024 6:30 PM EDT ECG 12-LEAD STAT 12/24/2024 5:14 PM EDT from Last 3 Months Results * ECG-Annotated (12/25/2024) Only the most recent of2 resultswithin the time period is included. us Provider Onbase MD ECG ORDERABLES Final Result * XR Chest 2 Views (12/24/2024 6:41 PM EDT) Anatomical Region Laterality Modality Body Radiographic Beryl ging 12/25/2024 10:1 7 AM EDT Impressions 12/25/2024 10:19 AM EDT No acute pulmonary disease. No change since 08/31/2024. Code 04431 -------- FINAL REPORT -------- Dictated By: Oliverio Garcia Dictated Date: 12/25/2024 10:17 ET Assigned Physician: Oliverio Garcia Reviewed and Electronically Signed By: Oliverio Garcia Signed Date: 12/25/2024 10:19 ET Workstation ID: [id number] Transcribed By: Self Edit Transcribed Date: 12/25/2024 10:17 ET Narrative 12/25/2024 10:19 AM EDT HISTORY: The patient is a 64-year-old male with chest pain. FINDINGS: PA and lateral radiographs of the chest demonstrate extensive degenerative changes of the thoracic spine as also seen on the prior study performed 08/31/2024. Again seen are bilateral cervical ribs. The cardiac silhouette remains mildly enlarged. The mediastinal contour is within normal limits. The lungs and costophrenic angles are clear. Procedure Note Oliverio Garcia MD - 12/25/2024 HISTORY: The patient is a 64-year-old male with chest pain. FINDINGS: PA and lateral radiographs of the chest demonstrate extensivedegenerative changes of the thoracic spine as also seen on the prior studyperformed 08/31/2024. Again seen are bilateral cervical ribs. The cardiacsilhouette remains mildly enlarged. The mediastinal contour is withinnormal limits. The lungs and costophrenic angles are clear. IMPRESSION: No acute pulmonary disease. No change since 08/31/2024. Code 78053 -------- FINAL REPORT -------- Dictated By: Oliverio Garcia Dictated Date: 12/25/2024 10:17 ET Assigned Physician: Oliverio Garcia Reviewed and Electronically Signed By: Oliverio Garcia Signed Date: 12/25/2024 10:19 ET Workstation ID: [id number] Transcribed By: Self Edit Transcribed Date: 12/25/2024 10:17 ET us Reilly Cota MD IMG XR PROCEDURES Final R esult * Troponin I high sensitivity (12/24/2024 6:30 PM EDT) High Sensitivity Troponin I 6 <=79 ng/L LAB CHEMISTRY METHOD 12/24/2024 7:28 PM EDT [facility] Blood Venous blood specimen / Unknown Venipuncture / Unknown 12/24/2024 6:30 PM EDT 12/24/2024 7:02 PM EDT Narrative [facility] - 12/24/2024 7:28 PM EDT High levels of biotin in samples may falsely decrease hsTroponin values. Use caution when interpreting hsTroponin results in patients taking biotin who exhibit renal impairment (eGFR <60) or in patients taking more than 20 mg/day of biotin. us Reilly Cota MD LAB BLOOD ORDERABLES Alice nanda Result [facility] [address] [place] [address], * (ABNORMAL) CBC auto differential (12/24/2024 6:30 PM EDT) WBC 12.4(H) 4.8 - 10.8 K/mcL LAB HEMETOLOGY METHOD 12/24/2024 7:09 PM EDT [facility] RBC 4.90 4.50 - 5.50 M/mcL LAB HEMETOLOGY METHOD 12/24/2024 7:09 PM EDT [facility] Hemoglobin 14.6 13.5 - 17.5 g/dL LAB HEMETOLOGY METHOD 12/24/2024 7:09 PM EDT [facility] Hematocrit 44.7 42.0 - 54.0 % LAB HEMETOLOGY METHOD 12/24/2024 7:09 PM EDT [facility] MCV 90.7 79.0 - 98.0 FL LAB HEMETOLOGY METHOD 12/24/2024 7:09 PM EDT [facility] MCH 29.6 27.0 - 32.0 pcg LAB HEMETOLOGY METHOD 12/24/2024 7:09 PM EDT [facility] MCHC 32.7 32.0 - 37.0 g/dL LAB HEMETOLOGY METHOD 12/24/2024 7:09 PM EDT [facility] RDW 13.1 11.0 - 15.0 % LAB HEMETOLOGY METHOD 12/24/2024 7:[facility] Platelets 196 130 - 400 K/mcL LAB HEMETOLOGY METHOD 12/24/2024 7:09 [facility] MPV 11.1(H) 7.0 - 11.0 FL LAB HEMETOLOGY METHOD 12/24/2024 7:09 PM [facility] NRBC 0.0 <1.0 % LAB HEMETOLOGY METHOD 12/24/2024 7:09 PM [facility] NRBC Absolute 0.00 <0.10 K/mcL LAB HEMETOLOGY METHOD 12/24/2024 7:09 PM [facility] Neutrophils Relative 84.8 % LAB HEMETOLOGY METHOD 12/24/2024 7:09 PM [facility] Lymphocytes Relative 7.9 % LAB HEMETOLOGY METHOD 12/24/2024 7:09 PM [facility] Monocytes Relative 6.1 % LAB HEMETOLOGY METHOD 12/24/2024 7:09 PM [facility] Eosinophils Relative 0.3 % LAB HEMETOLOGY METHOD 12/24/2024 7:09 PM [facility] Basophils Relative 0.3 % LAB HEMETOLOGY METHOD 12/24/2024 7:09 PM [facility] Immature Granulocytes Relative 0.6 % LAB HEMETOLOGY METHOD 12/24/2024 7:09 PM [facility] Neutrophils Absolute 10.48(H) 1.50 - 7.00 K/mcL LAB HEMETOLOGY METHOD 12/24/2024 7:09 PM [facility] Lymphocytes Absolute 0.98(L) 1.00 - 5.00 K/mcL LAB HEMETOLOGY METHOD 12/24/2024 7:09 PM [facility] Monocytes Absolute 0.75 0.20 - 1.00 K/mcL LAB HEMETOLOGY METHOD 12/24/2024 7:09 PM [facility] Eosinophils Absolute 0.04 0.00 - 0.50 K/mcL LAB HEMETOLOGY METHOD 12/24/2024 7:09 PM [facility] Basophils Absolute 0.04 0.00 - 0.20 K/mcL LAB HEMETOLOGY METHOD 12/24/2024 7:09 PM EDT [facility] Immature Granulocytes Absolute 0.08(H) 0.00 - 0.03 K/[facility] LAB HEMETOLOGY METHOD 12/24/2024 7:09 PM [facility] Blood Venous blood specimen / Unknown Venipuncture / Unknown 12/24/2024 6:30 PM EDT 12/24/2024 7:02 PM EDT us Reilly Cota MD LAB BLOOD ORDERABLES Alice vee Result [facility] [address] [place] [address], [place] [phone] * (ABNORMAL) Basic metabolic panel (12/24/2024 6:30 PM EDT) Sodium 136 133 - 145 mmol/L LAB CHEMISTRY METHOD 12/24/2024 7:24 PM [facility] Potassium 3.6 3.5 - 5.5 mmol/L LAB CHEMISTRY METHOD 12/24/2024 7:24 PM [facility] Chloride 101 96 - 110 mmol/L LAB CHEMISTRY METHOD 12/24/2024 7:24 PM [facility] CO2 28 21 - 32 mmol/L LAB CHEMISTRY METHOD 12/24/2024 7:24 PM [facility] Anion Gap 7 3 - 11 LAB CHEMISTRY METHOD 12/24/2024 7:24 PM [facility] Glucose 117(H) 70 - 100 mg/dL LAB CHEMISTRY METHOD 12/24/2024 7:24 PM [facility] BUN 24 5 - 25 mg/dL LAB CHEMISTRY METHOD 12/24/2024 7:24 PM [facility] Creatinine 1.14 0.70 - 1.30 mg/dL LAB CHEMISTRY METHOD 12/24/2024 7:24 PM EDT [facility] eGFR 71 >=60 mL/min/1. 73m2 LAB CHEMISTRY METHOD 12/24/2024 7:24 PM EDT [facility] Comment:Calculation based on the Chronic Kidney Disease Epidemiology Collaboration (CKD-EPI) equation refit without adjustment for race. BUN/Creatinine Ratio 21.1 LAB CHEMISTRY METHOD 12/24/2024 7:24 PM EDT [facility] Calcium 9.4 8.5 - 10.5 mg/dL LAB CHEMISTRY METHOD 12/24/2024 7:24 PM EDT [facility] Blood Venous blood specimen / Unknown Venipuncture / Unknown 12/24/2024 6:30 PM EDT 12/24/2024 7:02 PM EDT Reilly Cota MD LAB BLOOD ORDERABLES Alice l Result [facility] [address] [place] [address], [place] [phone] * ECG 12 lead (Now) (12/24/2024 5:14 PM EDT) Ventricular Rate ECG 80 BPM GEMUSE Atrial Rate 80 BPM GEMUSE P-R Interval 150 ms GEMUSE QRS Duration 84 ms GEMUSE Q-T Interval 398 ms GEMUSE QTc 459 ms GEMUSE P Wave [place] 53 degrees GEMUSE R [place] 52 degrees GEMUSE T [place] 52 degrees GEMUSE ECG Interpretation Normal sinus rhythm Minimal voltage criteria for LVH, may be normal variant ( Sokolow-Mckeon ) When compared with ECG of 31-AUG-2024 18:07, No significant change was found Confirmed by LEE SOLORIO ([id number]) on 12/24/2024 6:09:37 PM GEMUSE 12/24/2024 5:14 PM EDT 12/24/2024 6:09 PM EDT Reilly Cota MD ECG ORDERABLES Final Res ult GEMUSE from Last 3 Months Additional Health Concerns Infection Onset Date Last Indicated Human Metapneumovirus 06/06/2024 06/06/2024 [place] [address] Care Teams Consumer Analyst Relationship Specialty Start Date End Date Martha Welsh MD [address] [place] [phone] PCP - General 06/13/15
--- OUTSIDE RECORDS SUMMARY | 2025-02-27 09:34 | XMS_ITS | Clinical Summary ---
Author Organization [employer] Address [address] [facility] [address] [place] [address] Care Team Providers Care Head Sugar Reprocess Operator Name Role Phone Name, Johny CHRISTY Primary Care Provider [phone] Allergies No known active allergies Medications finasteride (Proscar) 5 MG tablet Take 5 mg by mouth in the morning. 06/22/2022 Active ibuprofen 800 MG tablet Take 800 mg by mouth 3 times daily. 06/22/2022 Active aspirin (Aspirin Low Dose) 81 MG EC tablet TAKE 1 TABLET BY MOUTH EVERY DAY 90 tablet 02/23/2024 Active lisinopril-hydro CHLOROthiazide 20-25 MG tablet Take 1 tablet by mouth Once per day. 30 tablet 11 09/19/2024 Active Active Problems Problem Noted Date Diagnosed Date Raised prostate specific antigen 09/07/2024 Essential hypertension 04/14/2019 Depressive disorder 05/05/2012 Impaired fasting glucose 05/05/2012 Tobacco dependence syndrome 05/05/2012 Encounters Date Type Department Care Team Description 02/01/2025 Telephone [facility] [address] [place] [address] NameJohny MD Chart Prep from Last 3 Months Immunizations Immunization Administration Dates Next Due Influenza injectable quadriv [...] 93 09/12/2024 10:24 AM EDT Temperature 36.3 C (97.3 F) 09/12/2024 10:24 AM EDT Respiratory Rate 12 09/12/2024 10:24 AM EDT [...] 08/23/19 22, 05/02/2015, 10/01/2014, Additional history exists Dental X-Ray: Full Mouth 08/23/2024 022, 10/01/2014, 02/22/2009 COVID-19 Vaccine ( season) 2025 10/14/2020, 09/16/2020 Influenza Vaccine (#1) 2025 8, 05/05/2013, 05/06/2012, Additional history exists Colonoscopy 08/30/2025 08/30/2020 Colorectal Cancer Screening 08/30/2025 Depression Screening 09/12/2025 09/12/2024, 09/13/19 25 SDOH Screening 09/12/2025 09/12/2024 Tobacco Screening 09/12/2025 09/12/2024 Lipid Panel 09/19/2029 09/19/2024, 04/19/2020 DTaP/Tdap/Td Vaccines (3 - Td or Tdap) 04/25/2034 04/25/2024, 08/15/2010, 02/24/2010 RSV Patients and Patients Aged 60 years or older (1 - 1-dose 75+ series) 09/22/2034 Hepatitis C Screening Completed 04/19/2020 HIB Vaccines [...] QN, PCR Routine 04/19/2020 8:43 AM EST PROPHYLAXIS - ADULT Routine 05/02/2015 1 2:00 AM EST from Last 3 Months or Most Recently Relevant to Health Maintenance Results * Lipid Panel, Standard (09/19/2024 10:48 AM EDT) Triglycerides 98 <150 mg/dL [facility] Comment:Desirable Triglyceri de: less than 150 mg/dLBorderline High Triglyceride 150-199 mg/dLHigh Triglyceride: 200-499 mg/dLVery High Triglyceride: greater than or equal to 5OO mg/dL Cholesterol 159 <200 mg/dL [facility] Comment:Desirable Cholestero l: less than 200 mg/dLBorderline High Cholesterol: 200-239 mg/dLHigh Cholesterol: greater than 239 mg/dL LDL Cholesterol Calculated 68 <100 mg/dL [facility] Comment:Desirable LDL: less than 100 mg/dLNear Optimal/Above Optimal LDL: 110- 129 mg/dLBorderline High LDL: 130-159 mg/dLHigh LDL: 160-189 mg/dLVery High LDL: greater than or equal to 190 mg/dL HDL Cholesterol 72 >40 mg/dL [facility] Comment:Desirable HDL: great er than 40 mg/dL Note: This HDL assay may give artificially low results in patients with liver disease. Blood Venous blood specimen / Unknown 09/19/2024 10:48 AM EDT 09/19/2024 10:48 AM EDT Johny Amor MD LAB BLOOD ORDERABLES Final Resul t [facility] [address] [place] [address] [phone] * Hm Colonoscopy (08/30/2020) Colonoscopy Normal Normal Narrative Yesenia Wong - 08/30/2020 Recommended 5 year follow up [facility] Provider HEALTH MAINTENANCE Final Result * HEPATITIS C AB W/REFL TO HCV RNA, QN, PCR (04/19/2020 8:43 AM EST) HEPATITIS C ANTIBODY NON-REACT UVALDO NON-REACT UVALDO [facility] INDEX 0.02 <1.00 [facility] Comment: HCV antibody was non-reactive. There is no laboratory evidence of HCV infection. In most cases, no further action is required. However, if recent HCV exposure is suspected, a test for HCV RNA (test code 90424) is suggested. For additional information please refer to http://education.Orlebar Brown/faq/ATJ66f2 (This link is being provided for informational/ educational purposes only.) HEPATITIS C ANTIBODY NON-REACT UVALDO NON-REACT UVALDO [facility] INDEX 0.02 <1.00 [facility] Comment: HCV antibody was non-reactive. There is no laboratory evidence of HCV infection. In most cases, no further action is required. However, if recent HCV exposure is suspected, a test for HCV RNA (test code 17251) is suggested. For additional information please refer to http://education.Orlebar Brown/faq/EXX45e2 (This link is being provided for informational/ educational purposes only.) 04/19/2020 8:43 AM EST us Disha Staffrod MD HISTORICAL/NON ORDERABLE LABS Final Result [facility] [address] from Last 3 Months or Most Recently Relevant to Health Maintenance Insurance [address] [place] [address] * Guarantor: Seng Aguila Account Type Relation to Patient Date of Phone Billing Address Personal/Family Self [address] [phone] Care Teams Head Sugar Reprocess Operator Relationship Specialty Start Date End Date Name, MD Johny [address] [place] [id number] PCP - General Internal Medicine 07/07/24
--- OUTSIDE RECORDS SUMMARY | 2025-02-27 09:34 | XMS_ITS | Encounter Summary ---
Author Organization [employer] Address [address] [facility] 7[address] [place] [address] Care Team Providers Care Director Food Safety Name Role Phone Daniel Madsen Primary Care Provider Unavail able NameJohny MD Primary Care Provider [phone] Reason for Visit * Reason Onset Date Comments Med Refill 10/23/2022 Encounter Details Date Type Department Care Team (Late st Contact Info) Description 10/23/[address] [facility] MEDICINE [address] [place], [place] [phone] Daniel Madsen AGNP Med Refill Social History [...] on filedocumented in this encounter Care Teams Director Food Safety Relationship Specialty Start Date End Date Daniel Madsen AGNP PCP - General Family Medicine 03/06/22 02/09/23 Name, MD Johny [address] [place] [address] PCP - General Internal Medicine 07/07/24 documented as of this encounter
--- OUTSIDE RECORDS SUMMARY | 2025-02-27 09:34 | XMS_ITS | Clinical Summary ---
Author Organization [facility] Address [address] [place] [address] Care Team Providers Care Hedis Analyst Name Role Phone Unavailable Primary Care Provider [...] 09/22/2004 Imm-Zoster, Recombinant (1 of 2) 09/22/2009 Imm-Pneumococcal 50+ (2 of 2 - PCV) 08/16/2011 08/15/2010 Imm-DTaP/Tdap/Td (2 - Td or Tdap) 08/15/2020 011, 02/24/2010 Alcohol and Drug Screen 05/31/2024 Depression Annual Screen 05/31/2024 Abdominal Aortic Aneurysm Screening 09/22/2024 Falls Prevention 09/22/2024 Uif-VWHWD-09 (3 - season) 2025 021, 09/16/2020 Imm-Influenza (#1) 2025 03/21/2018, 1 07/06/2012, 05/06/2012, Additional history exists Insurance [employer] Member Subscriber Plan / Payer (Ef fective 2020-Present) Name:Seng Aguila Relation to Subscriber:Self Name:Seng Aguila Payer ID:[id number] Type:Indemnity Address: [facility] [address] [place] [address]
--- OUTSIDE RECORDS SUMMARY | 2025-02-27 09:34 | XMS_ITS | Encounter Summary ---
Author Organization [employer] Address [address] [place] [address] [address]t [place] [address] Care Team Providers Care Seniour Insight Manager Name Role Phone Name, Johny CHRISTY Primary Care Provider [phone] Encounter Details Date Type Department Care Team ([facility] st Contact Info) Description 04/12/2023 Abstract [facility] MEDICINE [address] [place], [place] [phone] Ese Dukes MD [address] [place], [place] [phone] Social History Tobacco Use Types Packs/Day Years [...] 08/30/2020 documented in this encounter Results * Hm Colonoscopy (08/30/2020) Colonoscopy Normal Normal Narrative Kurtis Wongba - 08/30/2020 Recommended 5 year follow up Historical Provider HEALTH MAINTENANCE Final Result documented in this encounter Visit Diagnoses Not on filedocumented in this encounter Care Teams Seniour Insight Manager Relationship Specialty Start Date End Date Name, MD Johny [address] [place] [address] PCP - General Internal Medicine 07/07/24 documented as of this encounter
--- OUTSIDE RECORDS SUMMARY | 2025-02-27 09:34 | XMS_ITS | Encounter Summary ---
Author Organization [employer] Address [address] [facility] 7[address] [place] [address] Care Team Providers Care Air Compressor Engineer Name Role Phone Name, Johny CHRISTY Primary Care Provider [phone] Reason for Visit * Reason Onset Date Comments Med Refill 07/07/2024 Encounter Details Date Type Department Care Team ([facility] st Contact Info) Description 07/07/2024 Telephone [facility] MEDICINE [address] [place], [place] [phone] Name, MD Johny [address] [place] [address] Med Refill Social History Tobacco Use Types [...] pt was not seen in 2 years technical writer and editor schedule transfer amanda for 09/12 [address] DrName documented in this encounter Plan of Treatment Not on file documented as of this encounter Visit Diagnoses Not on filedocumented in this encounter Care Teams Air Compressor Engineer Relationship Specialty Start Date End Date Name, MD Johny [address] [place] [address] PCP - General Internal Medicine 07/07/24 documented as of this encounter
[2025-02-27 10:24] LABS: Prostate Specific Antigen 3.90 ng/mL (<0.05-4.0)
== END 2025-02-27 08:59 | disposition home or self-care (01) ==
LOC: HO.LAB 08:58
PROVIDERS: PCP Nurse Practitioner Primary Care; Visit Provider Nurse Practitioner Family
DX: N40.1 Benign prostatic hyperplasia with lower urinary tract symptoms (principal); N13.8 Other obstructive and reflux uropathy; R97.20 Elevated prostate specific antigen [PSA]
CPT/HCPCS: 36415; 84153

== ENCOUNTER 2025-03-01 08:06 | Outpatient (AMB) | payer OTHER, SELFPAY ==
--- OUTSIDE RECORDS SUMMARY | 2025-03-01 08:13 | XMS_ITS | Encounter Summary ---
Author Organization [employer] Address [address] [place] [address] 7t [place] [address] Care Team Providers Care Broadcast Operations Director Name Role Phone Name, Johny CHRISTY Primary Care Provider [phone] Reason for Visit * Reason Comments Med Refill Encounter Details Date Type Department Care Team ([facility] st Contact Info) Description 06/21/2024 Refill [facility] MEDICINE [address] [place] [phone] Ese Dukes MD [address] [place], [place] [phone] Social History Tobacco Use Types Packs/Day Years [...] on filedocumented in this encounter Care Teams Broadcast Operations Director Relationship Specialty Start Date End Date Name, MD Johny [address] [place] [address] [phone] PCP - General Internal Medicine 07/07/24 documented as of this encounter
--- OUTSIDE RECORDS SUMMARY | 2025-03-01 08:13 | XMS_ITS | Encounter Summary ---
Author Organization [employer] Address [address] [place] [address] [address]t [place] [address] Care Team Providers Care Zone Supervisor Firearms Name Role Phone Name, Johny CHRISTY Primary Care Provider [phone] Encounter Details Date Type Department Care Team ([facility] st Contact Info) Description 04/12/2023 Abstract [facility] MEDICINE [address] [place], [place] [phone] Ese Dukes MD [address] [place], [place] [phone] Social History Tobacco Use Types Packs/Day Years [...] on filedocumented in this encounter Care Teams Zone Supervisor Firearms Relationship Specialty Start Date End Date Name, MD Johny [address] [place] [address] PCP - General Internal Medicine 07/07/24 documented as of this encounter
--- OUTSIDE RECORDS SUMMARY | 2025-03-01 08:13 | XMS_ITS | Clinical Summary ---
Author Organization [employer] Address [address] [facility] 7t [place] [address] Care Team Providers Care Police Commanding Officer Name Role Phone Name, Johny CHRISTY Primary Care Provider [phone] Allergies No known active allergies Medications finasteride [...] Encounters Date Type Department Care Team Description 02/27/2025 Orders Only GENERIC EXTERNAL DATA DEPARTMENT Provider, Generic External Data 02/01/2025 Telephone [facility] [address] [place] [address] Name, MD Johny Chart Prep from Last 3 Months Immunizations [...] Procedure Name Priority Date/Time Associated Diagnosis Comments PSA, TOTAL Routine 02/27/2025 9:25 AM EDT LIPID PANEL, STANDARD Routine 09/19/2024 10:48 AM [...] Recently Relevant to Health Maintenance Results * PSA,Total (02/27/2025 9:25 AM EDT) Prostate Specific Antigen 3.90 <0.05 - 4.0 ng/mL [facility] Comment:PSA methodology: Shameka Maya i ChemiluminescentMicroparticle Immunoassay (CMIA) 02/27/2025 9:25 AM EDT 02/27/2025 9:25 AM EDT us Generic External Data Provider LAB BLOOD ORDERAB LES Final Result Performing Organization Address City/[facility] Co de Phone Number [facility] [address] [place] [phone] * Lipid Panel, Standard (09/19/2024 10:48 AM EDT) Triglycerides 98 <150 mg/dL [facility] Comment:Desirable Triglyceri de: less than 150 mg/dLBorderline High Triglyceride 150-199 mg/dLHigh Triglyceride: 200-499 mg/dLVery High Triglyceride: greater than or equal to 5OO mg/dL Cholesterol 159 <200 mg/dL [facility] Comment:Desirable Cholestero l: less than 200 mg/dLBorderline High Cholesterol: 200-239 mg/dLHigh Cholesterol: greater than 239 mg/dL LDL Cholesterol Calculated 68 <100 mg/dL [facility] Comment:Desirable LDL: less than 100 mg/dLNear Optimal/Above Optimal LDL: 110- 129 mg/dLBorderline High LDL: 130-159 mg/dLHigh LDL: 160-189 mg/dLVery High LDL: greater than or equal to 190 mg/dL HDL Cholesterol 72 >40 mg/dL [facility] Comment:Desirable HDL: great er than 40 mg/dL Note: This HDL assay may give artificially low results in patients with liver disease. Blood Venous blood specimen / Unknown 09/19/2024 10:48 AM EDT 09/19/2024 10:48 AM EDT us Johny Amor MD LAB BLOOD ORDERABLES Final Resul t Performing Organization Address City/[facility]/ZIP Co de Phone Number [facility] [address] [place] [address] [phone] * Hm Colonoscopy (08/30/2020) Colonoscopy Normal Normal Narrative Yesenia Wong - 08/30/2020 Recommended 5 year follow up Historical Provider MD HEALTH MAINTENANCE Final Result * HEPATITIS C AB W/REFL TO HCV RNA, QN, PCR (04/19/2020 8:43 AM EST) HEPATITIS C ANTIBODY NON-REACT [facility] NON-[facility]ACT [facility] INDEX 0.02 <1.00 [facility] Comment: HCV antibody was non-reactive. There is no laboratory evidence of HCV infection. In most cases, no further action is required. However, if recent HCV exposure is suspected, a test for HCV RNA (test code 69078) is suggested. For additional information please refer to http://HelpingDoc/faq/BPK57m4 (This link is being provided for informational/ educational purposes only.) HEPATITIS C ANTIBODY NON-REACT [facility] NON-REACT [facility] INDEX 0.02 <1.00 [facility] Comment: HCV antibody was non-reactive. There is no laboratory evidence of HCV infection. In most cases, no further action is required. However, if recent HCV exposure is suspected, a test for HCV RNA (test code 10364) is suggested. For additional information please refer to http://HelpingDoc/faq/KPK21n6 (This link is being provided for informational/ educational purposes only.) 04/19/2020 8:43 AM EST Disha Stafford MD HISTORICAL/NON ORDERABLE LABS Final Result [facility] [address] from Last 3 Months or Most Recently Relevant to Health Maintenance Insurance [facility] Care Teams Police Commanding Officer Relationship Specialty Start Date End Date Name, MD Johny [address] [place] [phone] PCP - General Internal Medicine 07/07/24
--- OUTSIDE RECORDS SUMMARY | 2025-03-01 08:13 | XMS_ITS | Encounter Summary ---
Author Organization [employer] Address [address] [facility] 7[address] [place] [address] Care Team Providers Care Sheeter Machine Operator Name Role Phone Name, Johny CHRISTY Primary Care Provider [phone] Encounter Details Date Type Department Care Team ([facility] st Contact Info) Description 02/27/2025 Orders Only GENERIC EXTERNAL DATA DEPARTMENT Provider, Generic External Data Social History Tobacco Use Types Packs/Day Years [...] PSA, TOTAL Routine 02/27/2025 9:25 AM EDT documented in this encounter Results * PSA,Total (02/27/2025 9:25 AM EDT) Prostate Specific Antigen 3.90 <0.05 - 4.0 ng/mL [facility] Comment:PSA methodology: Shameka Maya i ChemiluminescentMicroparticle Immunoassay (CMIA) 02/27/2025 9:25 AM EDT 02/27/2025 9:25 AM EDT us Generic External Data Provider LAB BLOOD ORDERAB LES Final Result [facility] [address] [place] [phone] documented in this encounter Visit Diagnoses Not on filedocumented in this encounter Additional Health Concerns Assessment Noted Time PHQ-9 Depression Total Score: 5 09/13/19 25 11:08 AM EDT documented as of this encounter Care Teams Sheeter Machine Operator Relationship Specialty Start Date End Date Name, MD Johny [address] [place] [phone] PCP - General Internal Medicine 07/07/24 documented as of this encounter
--- OUTSIDE RECORDS SUMMARY | 2025-03-01 08:13 | XMS_ITS | Clinical Summary ---
Author Organization [facility] Address [address] [place] [address] Care Team Providers Care Jewelry Drilling Machine Operator Name Role Phone Unavailable Primary Care Provider [...] Aortic Aneurysm Screening 09/22/2024 Falls Prevention 09/22/2024 [id number] (3 - season) 2025 021, 09/16/2020 Imm-Influenza (#1) 2025 03/21/2018, 1 07/06/2012, 05/06/2012, Additional history exists Insurance [employer] Member Subscriber Plan / Payer (Ef fective 2020-Present) Name:Seng Aguila Relation to Subscriber:Self Name:Seng Aguila Payer ID:[id number] Type:Indemnity Address: [facility] [address] [place] [address]
--- OUTSIDE RECORDS SUMMARY | 2025-03-01 08:13 | XMS_ITS | Encounter Summary ---
Author Organization [employer] Address [address] [facility] 7t [place] [address] Care Team Providers Care Tongsman Name Role Phone Name, Johny CHRISTY Primary Care Provider [phone] Reason for Visit * Reason Onset Date Comments Med Refill 07/07/2024 Encounter Details Date Type Department Care Team ([facility] st Contact Info) Description 07/07/2024 Telephone [facility] [address] [place], [place] [phone] Name, MD Johny [address] [place] [address] Med Refill Social History Tobacco Use Types [...] pt was not seen in 2 years life underwriter schedule transfer amanda for 09/12 with [address]. P[address] DrName documented in this encounter Plan of Treatment Not on file documented as of this encounter Visit Diagnoses Not on filedocumented in this encounter Care Teams Tongsman Relationship Specialty Start Date End Date Name, MD Johny [address] [place] [address] PCP - General Internal Medicine 07/07/24 documented as of this encounter
--- OUTSIDE RECORDS SUMMARY | 2025-03-01 08:13 | XMS_ITS | Encounter Summary ---
Author Organization [employer] Address [address] [facility] 7t [place] [address] Care Team Providers Care Event Sales Manager Name Role Phone Daniel Madsen Primary Care Provider Unavail able NameJohny MD Primary Care Provider Reason for Visit * Reason Onset Date Comments Med Refill 10/23/2022 Encounter Details Date Type Department Care Team (Late st Contact Info) Description 10/23/2022 Telephone [facility] MEDICINE [address] [place], [place] [phone] Daniel Madsen AGNP Med Refill Social History [...] on filedocumented in this encounter Care Teams Event Sales Manager Relationship Specialty Start Date End Date Daniel Madsen AGNP PCP - General Family Medicine 03/06/22 02/09/23 Name, MD Johny [address] [place] [address] PCP - General Internal Medicine 07/07/24 documented as of this encounter
--- OUTSIDE RECORDS SUMMARY | 2025-03-01 08:13 | XMS_ITS | Clinical Summary ---
Author Organization [facility] Address [address] [place] [address] Phone Care Team Providers Care Digital Marketing Lead Name Role Phone Martha Welsh MD Primary Care Provider [phone] Allergies No known active allergies Medications No known medications Encounters Date Type Department Care Team Description 12/24/2024 5:30 PM EDT - 12/24/2024 9:12 PM EDT Emergency [facility] Emergency [address] [place] [address] Reilly Cota MD Dizziness (Primary [...] pulmonary disease. No change since 08/31/2024. Code 69671 -------- FINAL REPORT -------- Dictated By: Oliverio Garcia Dictated Date: 12/25/2024 10:17 ET Assigned Physician: Oliverio Garcia Reviewed and Electronically Signed By: Oliverio Garcia Signed Date: 12/25/2024 10:19 ET Workstation ID: [id number] Transcribed By: Self Edit Transcribed Date: 12/25/2024 [...] pulmonary disease. No change since 08/31/2024. Code 04282 -------- FINAL REPORT -------- Dictated By: Oliverio Garcia Dictated Date: 12/25/2024 10:17 ET Assigned Physician: Oliverio Garcia Reviewed and Electronically Signed By: Oliverio Garcia Signed Date: 12/25/2024 10:19 ET Workstation ID: [id number] Transcribed By: Self Edit Transcribed Date: 12/25/2024 10:17 ET us Reilly Cota MD IMG XR PROCEDURES Final R esult * Troponin I high sensitivity (12/24/2024 6:30 PM EDT) High Sensitivity Troponin I 6 <=79 ng/L LAB CHEMISTRY METHOD 12/24/2024 7:28 PM EDT [facility] Blood Venous blood specimen / Unknown Venipuncture / Unknown 12/24/2024 6:30 PM EDT 12/24/2024 7:02 PM EDT Narrative [facility] - 12/24/2024 7:28 PM EDT High levels of biotin in samples may falsely decrease hsTroponin values. Use caution when interpreting hsTroponin results in patients taking biotin who exhibit renal impairment (eGFR <60) or in patients taking more than 20 mg/day of biotin. us Reilly Cota MD LAB BLOOD ORDERABLES Alice nanda Result [facility] [address] [place] [address], * (ABNORMAL) CBC auto differential (12/24/2024 6:30 PM EDT) WBC 12.4(H) 4.8 - 10.8 K/mcL LAB HEMETOLOGY METHOD 12/24/2024 7:09 PM EDT [facility] RBC 4.90 4.50 - 5.50 M/mcL LAB HEMETOLOGY METHOD 12/24/2024 7:09 PM EDT [facility] Hemoglobin 14.6 13.5 - 17.5 g/dL LAB HEMETOLOGY METHOD 12/24/2024 7:09 PM EDT [facility] Hematocrit 44.7 42.0 - 54.0 % LAB HEMETOLOGY METHOD 12/24/2024 7:09 PM EDT [facility] MCV 90.7 79.0 - 98.0 FL LAB HEMETOLOGY METHOD 12/24/2024 7:09 PM EDT [facility] MCH 29.6 27.0 - 32.0 pcg LAB HEMETOLOGY METHOD 12/24/2024 7:09 PM EDT [facility] MCHC 32.7 32.0 - 37.0 g/dL LAB HEMETOLOGY METHOD 12/24/2024 7:09 PM EDT [facility] RDW 13.1 11.0 - 15.0 % LAB HEMETOLOGY [facility]24[facility]24 [facility] Platelets 196 130 - 400 K/mcL LAB HEMETOLOGY METHOD 12/24[facility]2024 7[facility] MPV 11.1(H) 7.0 - 11.0 FL LAB HEMETOLOGY METHOD 12/24/2024 7:09 PM [facility] NRBC 0.0 <1.0 % LAB HEMETOLOGY METHOD 12/24/2024 7:09 PM [facility] NRBC Absolute 0.00 <0.10 K/mcL LAB HEMETOLOGY METHOD 12/24/2024 7:09 PM [facility] Neutrophils Relative 84.8 % LAB HEMETOLOGY METHOD 12/24/2024 7:09 PM [facility] Lymphocytes Relative 7.9 % LAB HEMETOLOGY METHOD 12/24/2024 7:09 PM [facility] Monocytes Relative 6.1 % LAB HEMETOLOGY METHOD 12/24/2024 7:09 PM [facility] Eosinophils Relative 0.3 % LAB HEMETOLOGY METHOD 12/24/2024 7:09 PM [facility] Basophils Relative 0.3 % LAB HEMETOLOGY METHOD 12/24/2024 7:09 PM [facility] Immature Granulocytes Relative 0.6 % LAB HEMETOLOGY METHOD 12/24/2024 7:09 PM [facility] Neutrophils Absolute 10.48(H) 1.50 - 7.00 K/mcL LAB HEMETOLOGY METHOD 12/24/2024 7:09 PM [facility] Lymphocytes Absolute 0.98(L) 1.00 - 5.00 K/mcL LAB HEMETOLOGY METHOD 12/24/2024 7:09 PM [facility] Monocytes Absolute 0.75 0.20 - 1.00 K/mcL LAB HEMETOLOGY METHOD 12/24/2024 7:09 PM [facility] Eosinophils Absolute 0.04 0.00 - 0.50 K/mcL LAB HEMETOLOGY METHOD 12/24/2024 7:09 PM [facility] Basophils Absolute 0.04 0.00 - 0.20 K/mcL LAB HEMETOLOGY METHOD 12/24/2024 7:09 PM EDT [facility] Immature Granulocytes Absolute 0.08(H) 0.00 - 0.03 K/[facility] LAB HEMETOLOGY METHOD 12/24/2024 7:09 PM [facility] Blood Venous blood specimen / Unknown Venipuncture / Unknown 12/24/2024 6:30 PM EDT 12/24/2024 7:02 PM EDT us Reilly Cota MD LAB BLOOD ORDERABLES Alice vee Result [facility] [address] [place] [address], [place] [phone] * (ABNORMAL) Basic metabolic panel (12/24/2024 6:30 PM EDT) Sodium 136 133 - 145 mmol/L LAB CHEMISTRY METHOD 12/24/2024 7:24 PM [facility] Potassium 3.6 3.5 - 5.5 mmol/L LAB CHEMISTRY METHOD 12/24/2024 7:24 PM [facility] Chloride 101 96 - 110 mmol/L LAB CHEMISTRY METHOD 12/24/2024 7:24 PM [facility] CO2 28 21 - 32 mmol/L LAB CHEMISTRY METHOD 12/24/2024 7:24 PM [facility] Anion Gap 7 3 - 11 LAB CHEMISTRY METHOD 12/24/2024 7:24 PM [facility] Glucose 117(H) 70 - 100 mg/dL LAB CHEMISTRY METHOD 12/24/2024 7:24 PM [facility] BUN 24 5 - 25 mg/dL LAB CHEMISTRY METHOD 12/24/2024 7:24 PM [facility] Creatinine 1.14 0.70 - 1.30 mg/dL LAB CHEMISTRY METHOD 12/24/2024 7:24 PM EDT [facility] eGFR 71 >=60 mL/min/1. 73m2 LAB CHEMISTRY METHOD 12/24/2024 7:24 PM EDT [facility] Comment:Calculation based on the Chronic Kidney Disease Epidemiology Collaboration (CKD-EPI) equation refit without adjustment for race. BUN/Creatinine Ratio 21.1 LAB CHEMISTRY METHOD 12/24/2024 7:24 PM EDT [facility] Calcium 9.4 8.5 - 10.5 mg/dL LAB CHEMISTRY METHOD 12/24/2024 7:24 PM EDT [facility] Blood Venous blood specimen / Unknown Venipuncture / Unknown 12/24/2024 6:30 PM EDT 12/24/2024 7:02 PM EDT Reilly Cota MD LAB BLOOD ORDERABLES Alice l Result [facility] [address] [place] [address], [place] [phone] * ECG 12 lead (Now) (12/24/2024 5:14 PM EDT) Ventricular Rate ECG 80 BPM GEMUSE Atrial Rate 80 BPM GEMUSE P-R Interval 150 ms GEMUSE QRS Duration 84 ms GEMUSE Q-T Interval 398 ms GEMUSE QTc 459 ms GEMUSE P Wave Juda 53 degrees GEMUSE R Juda 52 degrees GEMUSE T Juda 52 degrees GEMUSE ECG Interpretation Normal sinus [...] Last Indicated Human Metapneumovirus 06/06/2024 06/06/2024 Insurance Care Teams Digital Marketing Lead Relationship Specialty Start Date End Date Martha Welsh MD [address] [place] [phone] PCP - General 06/13/15
--- NOTE | 2025-03-01 08:15 | MHC.OFFVIS ---
Intake Visit Reasons: 6m/PSA/PVR Intake Note: patient presemts today for: 6m/PSA/PVR urology medications: finasteride blood thinners: aspirin labs done 02/27/25: PSA 3.90 today's PVR: 9mls Gasoline Truck Crane Operator Required: Yes Gasoline Truck Crane Operator Services: Gasoline Truck Crane Operator Present Gasoline Truck Crane Operator Name: Betsy Britton406 Accompanied by: Self / Same As Patient Allergies No Known Allergies Allergy (Verified 03/01/25 08:56) Medication List - Last Reconciled 03/01/25 by ROMAN Ross aspirin (Adult Low Dose Aspirin) 81 mg PO DAILY finasteride 5 mg PO DAILY 90 days lisinopril 30 mg PO DAILY HPI Comments Details: Seng is a pleasant 64-year-old Japanese-speaking male patient of Dr. Fontaine. He has a past medical history of hypertension, nicotine dependence, and elevated PSA. He presents to the office today for follow-up of his elevated PSA. In discussion with the patient today he reports to be doing and feeling well. He denies having had any bothersome urinary issues or concerns since his last office visit here. He reports compliance with 5 mg of finasteride daily as prescribed. Recent PSA results reviewed with the patient today as noted and trended below. In office urinalysis results reviewed with the patient today. He denies urinary urgency, urinary frequency, incontinence, nocturia, hematuria, dysuria, foul smelling urine, changes to urinary stream, flank pain, fever, and or chills. He is happy with his current voiding parameters. PSAs are as follows: 06/20 7.0 % free PSA 13%, 11/19 7.2 % free PSA 11%, 01/21 4.5 free PSA 10%, 08/22 3.4, 02/22 3.9 We discussed potential causes for elevated PSA/slight increase in PSA. Patient with a previous history of a prostate biopsy 12/19 that was WNL noted benign prostatic tissue/chronic inflamed prostate. Will continue with with finasteride daily in surveillance monitoring. He otherwise offers no other issues or concerns at this time. [facility] Medical History Tubular adenoma of colon (~2020) Personal history of nicotine dependence HTN (hypertension) Surgical History History of colonoscopy (~2020) Family History Father Diabetes Kidney stones Mother High blood pressure Brother Throat cancer Social History Are you a primary daytime caregiver to a significant other at home: No Do you presently have visiting nurse or other home services: No Alcohol intake: current Alcohol intake frequency: holidays/special occasions only Cigarette Packs Per Day: 0.5 Cigarettes Per Day: 10.0 Years Smoked: 40+ Review of Systems Const All systems reviewed & are unremarkable except as noted in HPI and below Physical Exam Const General: cooperative, healthy appearing, comfortable, no acute distress, well developed, alert and awake Orientation/consciousness: patient oriented x3 Limitations: language barrier HEENT Head: Yes normal to inspection, Yes normocephalic and Yes atraumatic Ears: hearing grossly normal bilaterally Eyes General: appearance normal, both eyes and all related structures Neck Neck: Yes normal visual inspection and Yes trachea midline Chest Chest palpation & inspection: normal inspection of the chest Resp Effort & Inspection: normal respiratory effort and able to speak in complete sentences Cardio Rate: regular rate GI Inspection: Yes normal to inspection General: Yes no CVA tenderness Back/Spine/Pelvis Back: no CVA tenderness Skin General skin exam: no rashes or lesions noted Neuro General: patient oriented x3 Extrem General: Yes normal to inspection Psych Appearance: grossly normal and well kempt Mental Status: mental status grossly normal Speech and movement: Normal speech and movement present and Clear speech present Affect: normal affect Attitude: cooperative Thought process: Normal thought process present Thought content: Normal thought content present Insight: Fair insight present (Psych) Judgement: Fair judgement present (Psych) Office Procedures Post Void Residual Post Residual Void Post Void Residual (PVR): 9 58104-Lxia Void Residual by ultrasound Results AMB Urinalysis, Automated UA Leukoctes 0 Antonio/uL Last Edit by ELPIDIO Ravi on 03/01/25 08:27 UA Nitrite Last Edit by ELPIDIO Ravi on 03/01/25 08:27 UA Urobilinogen 0.2 mg/dL Last Edit by ELPIDIO Ravi on 03/01/25 08:27 UA Protein 15 mg/dL Last Edit by ELPIDIO Ravi on 03/01/25 08:27 UA pH 5.5 Last Edit by ELPIDIO Ravi on 03/01/25 08:27 UA Blood 0 Eusebio/uL Last Edit by ELPIDIO Ravi on 03/01/25 08:27 UA Specific [place] 1.025 Last Edit by ELPIDIO Ravi on 03/01/25 08:27 UA Ketone Last Edit by ELPIDIO Ravi on 03/01/25 08:27 UA Bilirubin 0 mg/dL Last Edit by ELPIDIO Ravi on 03/01/25 08:27 UA Glucose 0 mg/dL Last Edit by ELPIDIO Ravi on 03/01/25 08:27 Results Reviewed Results Reviewed: Laboratory Last Values Urine pH (Auto) 5.5 03/01/25 08:27 Specific [place] (Auto) 1.025 03/01/25 08:27 Urine Protein (Auto) 15 mg/dL 03/01/25 08:27 Glucose (UA)(Auto) 0 mg/dL 03/01/25 08:27 Urine Blood (Auto) 0 Eusebio/uL 03/01/25 08:27 Urine Bilirubin (Auto) 0 mg/dL 03/01/25 08:27 Urine Urobilinogen (Auto) 0.2 mg/dL 03/01/25 08:27 Leukocyte Esterase (Auto) 0 Antonio/uL 03/01/25 08:27 Assessment & Plan Assessment & Plan (1) Elevated PSA: Code(s): R97.20 - Elevated prostate specific antigen [PSA] Category: Medical (2) BPH w urinary obs/LUTS: Code(s): N40.1 - Benign prostatic hyperplasia with lower urinary tract symptoms; N13.8 - Other obstructive and reflux uropathy Category: Medical Plan In office urinalysis results reviewed with the patient today; as noted above. PVR 9 mL Recent PSA results reviewed with the patient today; as noted above. We did discussed slight increase in PSA over the last 6 months; we did discussed further treatment options and risks and benefits of these treatment options. All questions were answered. He currently denies any bothersome urinary issues or concerns. He reports be happy with current voiding parameters. Will obtain redraw of PSA in 6 months. Continue finasteride. Will obtain MRI of the prostate. Follow-up in 6 months with imaging and PSA to be completed prior; or sooner with any issues, concerns, or questions. Orders: Orders AMB Post Void Residual by ultrasound Today N13.8 - Other obstructive and reflux uropathy, N40.1 - Benign prostatic hyperplasia with lower urinary tract symptoms AMB Urinalysis Automated Today Z13.9 - Encounter for screening, unspecified PSA,Total (Free>4and<10) 6 Months E11.69 - Type 2 diabetes mellitus with other specified complication, N52.1 - Erectile dysfunction due to diseases classified elsewhere MR Prostate wo/w con 6 Months R97.20 - Elevated prostate specific antigen [PSA] Medications: Refilled finasteride 5 mg PO DAILY 90 tabs 2RF 90 days N13.8 - Other obstructive and reflux uropathy, N40.1 - Benign prostatic hyperplasia with lower urinary tract symptoms, R33.9 - Retention of urine, unspecified Patient Instructions: The patient had an opportunity to ask questions regarding the treatment plan. All questions were answered. Physical exam, labs, and imaging were discussed and reviewed in detail. As well as risks, benefits, and discussion of treatment choices. No major barriers to understanding were identified. The patient expressed understanding and agreement with the above treatment plan. The patient was made aware they should contact our office by phone for worsening of their current condition, the appearance of new symptoms, or with any questions or concerns. Compliance is encouraged with any medications and follow up testing that is ordered. It is a privilege to be allowed the opportunity to participate in? your urological care.? Again, if you have any questions or concerns If you have any questions or concerns please do not hesitate to contact me. The office is [phone]. This note is constructed using voice recognition software. While every effort has been made to ensure accuracy professional sports scout errors may have been included. Yours sincerely, ROMAN Ross Coding Level of Care Code Est Pt Level 3 (15809) Complex EM visit Add On G2211 Diagnoses Elevated PSA R97.20 BPH w urinary obs/LUTS N40.1; N13.8 CPT Codes Post Residual Void - PVR CPT Code: 66863-Mcqv Void Residual by ultrasound ([id number])
== END 2025-03-01 09:01 | disposition home or self-care (01) ==
LOC: HO.HUSH 08:07
PROVIDERS: PCP Internal Medicine; Visit Provider Nurse Practitioner Family
DX: R97.20 Elevated prostate specific antigen [PSA] (principal); N40.1 Benign prostatic hyperplasia with lower urinary tract symptoms; N13.8 Other obstructive and reflux uropathy; Z13.9 Encounter for screening, unspecified
CPT/HCPCS: 99213

== ENCOUNTER → 2025-03-01 08:06 | Outpatient (BNVA) | payer OTHER, SELFPAY | PROVIDERS: PCP Internal Medicine; Visit Provider Nurse Practitioner Family | DX: N40.1 Benign prostatic hyperplasia with lower urinary tract symptoms (principal); R97.20 Elevated prostate specific antigen [PSA]; N13.8 Other obstructive and reflux uropathy; E11.69 Type 2 diabetes mellitus with other specified complication | CPT/HCPCS: 51798; 81003; 99212 ==